=== PATIENT | female | born 1935 | race Caucasian/White ===

== ENCOUNTER → 2019-12-16 | Outpatient (CLI) | payer MEDICARE, OTHER ==
[~2019-12-16] MED LIST: CITA20 PO; DILT120 PO; HYDR1TAB94 PO; LEVSOD100 PO; Lisinopril2.5 MG PO; Ranitidine HCl150 M1 PO; WARF2.5 PO; ZOCOR20 MG PO
[2019-12-16 17:57] LABS: BASOPHILS ABSOLUTE AUTO 0.03 K/mm3 (0.00-0.23); BASOPHILS PERCENT AUTO 1 % (0-2); EOSINOPHILS ABSOLUTE AUTO 0.07 K/mm3 (0.00-0.68); EOSINOPHILS PERCENT AUTO 1 % (0-6); Hematocrit 24.2 % (33.0-51.0); IMMATURE GRAN ABSOLUTE AUTO 0.01 K/mm3 (0.00-0.10); IMMATURE GRAN PERCENT AUTO 0 % (0-1); LYMPHOCYTES ABSOLUTE AUTO 1.14 K/mm3 (0.84-5.20); LYMPHOCYTES PERCENT AUTO 23 % (21-46); MONOCYTES ABSOLUTE AUTO 0.42 K/mm3 (0.16-1.47); MONOCYTES PERCENT AUTO 9 % (4-13); Mean Corpuscular HGB 18.4 pg (26.0-34.0); Mean Corpuscular HGB Conc 24.8 g/dL (31.5-36.5); Mean Corpuscular Volume 74 fL (80-100); Mean Platelet Volume 9.6 fL (9.1-12.4); NEUTROPHILS ABSOLUTE AUTO 3.24 K/mm3 (1.96-9.15); NEUTROPHILS PERCENT AUTO 66 % (41-73); Platelet Count 422 K/mm3 (150-400); RDW Coefficient Variation 18.6 % (11.7-14.2); RDW Standard Deviation 49.7 fL (35.1-46.3); Red Blood Cell Count 3.26 M/mm3 (3.80-5.20); White Blood Cell Count 4.91 K/mm3 (4.00-11.30)
[2019-12-16 18:11] LABS: International Normalized Ratio 1.61; Prothrombin Time Results 16.8 Sec (9.7-11.5)
[2019-12-16 18:41] LABS: Alanine Aminotransfer (ALT/SGP 15 U/L (12-78); Albumin, Blood 3.5 g/dL (3.4-5.0); Alk Phos 53 U/L (50-136); Anion Gap 6 mmol/L (6-16); Aspartate Aminotrans (AST/SGOT 13 U/L (12-37); Bilirubin, Total 0.6 mg/dL (0.1-1.0); Blood Urea Nitrogen 12 mg/dL (8-24); Bun/Creatinine Ratio 13.2 (12.0-20.0); CHOL/HDL RATIO 1.5; CO2, Blood 26 mmol/L (21-32); Calcium, Blood 8.7 mg/dL (8.5-10.1); Chloride, Blood 106 mmol/L (98-108); Cholesterol 110 mg/dL (50-200); Creatinine, Blood 0.91 mg/dL (0.40-1.00); Free Thyroxine 1.08 ng/dL (0.70-1.60); Globulin, Blood 3.5 g/dL (2.2-4.0); Glomerular Filtration Rate >60 (60-); Glucose, Blood 127 mg/dL (70-99); HDL Cholesterol 71 mg/dL (>39); LDL/HDL RATIO 0.4; Low Density Lipoprotein Chol 30 mg/dL (0-110); Potassium, Blood 4.4 mmol/L (3.5-5.5); Sodium, Blood 138 mmol/L (136-145); Triglycerides 46 mg/dL (30-160); Very Low Density Lipoprot Chol 9 mg/dL (6-32)
== END | disposition home or self-care (01) ==
LOC: LAB SHORT 16:53 → LAB 16:53
PROVIDERS: Nurse Practitioner Family
DX: E78.5 Hyperlipidemia, unspecified (principal); E03.9 Hypothyroidism, unspecified; I48.91 Unspecified atrial fibrillation; K81.1 Chronic cholecystitis
CPT/HCPCS: 80053; 80061; 83690; 84439; 84443; 85025; 85610

== ENCOUNTER 2019-12-17 09:38 | Emergency (ER) | payer MEDICARE, OTHER ==
[~2019-12-17] VITALS: Ht 170.2 cm; Wt 99.8 kg
[2019-12-17 10:44] LABS: BASOPHILS ABSOLUTE AUTO 0.03 K/mm3 (0.00-0.23); BASOPHILS PERCENT AUTO 1 % (0-2); EOSINOPHILS ABSOLUTE AUTO 0.07 K/mm3 (0.00-0.68); EOSINOPHILS PERCENT AUTO 2 % (0-6); Hematocrit 23.2 % (33.0-51.0); IMMATURE GRAN ABSOLUTE AUTO 0.01 K/mm3 (0.00-0.10); IMMATURE GRAN PERCENT AUTO 0 % (0-1); LYMPHOCYTES ABSOLUTE AUTO 0.97 K/mm3 (0.84-5.20); LYMPHOCYTES PERCENT AUTO 22 % (21-46); MONOCYTES ABSOLUTE AUTO 0.43 K/mm3 (0.16-1.47); MONOCYTES PERCENT AUTO 10 % (4-13); Mean Corpuscular HGB 18.7 pg (26.0-34.0); Mean Corpuscular HGB Conc 25.4 g/dL (31.5-36.5); Mean Corpuscular Volume 73 fL (80-100); Mean Platelet Volume 9.2 fL (9.1-12.4); NEUTROPHILS ABSOLUTE AUTO 2.99 K/mm3 (1.96-9.15); NEUTROPHILS PERCENT AUTO 66 % (41-73); Platelet Count 368 K/mm3 (150-400); RDW Coefficient Variation 18.3 % (11.7-14.2); RDW Standard Deviation 48.6 fL (35.1-46.3); Red Blood Cell Count 3.16 M/mm3 (3.80-5.20)
[2019-12-17 10:48] LABS: Hemoglobin 5.9 g/dL (11.5-16.0)
[2019-12-17 11:00] LABS: International Normalized Ratio 1.91; Prothrombin Time Results 19.7 Sec (9.7-11.5)
[2019-12-17] MEDS ORDERED: CITA20 PO (11:00)
[2019-12-17] MEDS ORDERED: LEVSOD100 PO (11:01)
[2019-12-17] MEDS ORDERED: DILT120 PO (11:01)
[2019-12-17] MEDS ORDERED: ZOCOR20 MG PO (11:01)
[2019-12-17] MEDS ORDERED: Ranitidine HCl150 M1 PO (11:01)
[2019-12-17] MEDS ORDERED: WARF2.5 PO (11:01)
[2019-12-17] MEDS ORDERED: HYDR1TAB94 PO (11:02)
[2019-12-17] MEDS ORDERED: Lisinopril2.5 MG PO (11:02)
[2019-12-17 11:13] LABS: Alanine Aminotransfer (ALT/SGP 16 U/L (12-78); Albumin, Blood 3.2 g/dL (3.4-5.0); Albumin/Globulin Ratio 0.9 (0.8-1.8); Alk Phos 53 U/L (50-136); Anion Gap 5 mmol/L (6-16); Aspartate Aminotrans (AST/SGOT 10 U/L (12-37); Bilirubin, Total 0.5 mg/dL (0.1-1.0); Blood Urea Nitrogen 12 mg/dL (8-24); Bun/Creatinine Ratio 14.1 (12.0-20.0); CO2, Blood 27 mmol/L (21-32); Calcium, Blood 8.4 mg/dL (8.5-10.1); Chloride, Blood 106 mmol/L (98-108); Creatinine, Blood 0.85 mg/dL (0.40-1.00); Free Thyroxine 1.26 ng/dL (0.70-1.60); Globulin, Blood 3.4 g/dL (2.2-4.0); Glomerular Filtration Rate >60 (60-); Glucose, Blood 107 mg/dL (70-99); Potassium, Blood 4.3 mmol/L (3.5-5.5); Sodium, Blood 138 mmol/L (136-145); Total Protein, Blood 6.6 g/dL (6.4-8.2)
[2019-12-17 12:15] LABS: Percent Saturation 4.6 % (15.0-50.0)
[2019-12-17 12:26] LABS: Source, Urine Clean Catch
[2019-12-17 12:32] LABS: Bilirubin, Urine Neg (Neg); Blood, Urine Neg (Neg); Glucose Qualitative, Urine Neg (Neg); Ketones, Urine Neg (Neg); Leukocyte Esterase, Urine Neg (Neg); Nitrite, Urine Neg (Neg); Protein, Urine Neg (Neg); Urobilinogen, Urine NORM (Normal); pH, Urine 6.5 (5.0-8.0)
[2019-12-17 12:36] LABS: Appearance, Urine Clear (Clear); Color, Urine Yellow (P-Yellow)
== END 2019-12-17 15:29 | disposition home or self-care (01) ==
LOC: ER 09:38
PROVIDERS: Emergency Medicine
DX: D50.9 Iron deficiency anemia, unspecified (principal); R91.8 Other nonspecific abnormal finding of lung field; J39.8 Other specified diseases of upper respiratory tract; Z79.01 Long term (current) use of anticoagulants; Z79.899 Other long term (current) drug therapy
CPT/HCPCS: 36415; 51701; 71046; 71260; 80053; 81003; 83540; 83550; 83690; 83735; 84439; 84443; 85025; 85610; 86850; 86900; 86901; 93005; 93010; 99283-25; Q9967

== ENCOUNTER → 2019-12-21 | Outpatient (CLI) | payer MEDICARE, OTHER ==
[2019-12-21 17:49] LABS: BASOPHILS ABSOLUTE AUTO 0.04 K/mm3 (0.00-0.23); BASOPHILS PERCENT AUTO 1 % (0-2); EOSINOPHILS PERCENT AUTO 2 % (0-6); Hematocrit 26.8 % (33.0-51.0); Hemoglobin 6.4 g/dL (11.5-16.0); IMMATURE GRAN ABSOLUTE AUTO 0.05 K/mm3 (0.00-0.10); IMMATURE GRAN PERCENT AUTO 1 % (0-1); LYMPHOCYTES ABSOLUTE AUTO 1.62 K/mm3 (0.84-5.20); LYMPHOCYTES PERCENT AUTO 26 % (21-46); MONOCYTES ABSOLUTE AUTO 0.48 K/mm3 (0.16-1.47); MONOCYTES PERCENT AUTO 8 % (4-13); Mean Corpuscular HGB 18.6 pg (26.0-34.0); Mean Corpuscular HGB Conc 23.9 g/dL (31.5-36.5); Mean Corpuscular Volume 78 fL (80-100); Mean Platelet Volume 9.3 fL (9.1-12.4); NEUTROPHILS ABSOLUTE AUTO 3.94 K/mm3 (1.96-9.15); NEUTROPHILS PERCENT AUTO 63 % (41-73); NRBC ABSOLUTE 0.05 K/mm3 (0.00-0.02); NRBC Auto 0.8 /100 WBC (0.0-0.2); Platelet Count 394 K/mm3 (150-400); RDW Coefficient Variation 21.2 % (11.7-14.2); RDW Standard Deviation 52.4 fL (35.1-46.3); Red Blood Cell Count 3.45 M/mm3 (3.80-5.20); White Blood Cell Count 6.23 K/mm3 (4.00-11.30)
[2019-12-21 18:05] LABS: Percent Saturation 15.6 % (15.0-50.0)
[2019-12-21 18:24] LABS: Alanine Aminotransfer (ALT/SGP 14 U/L (12-78); Albumin, Blood 3.6 g/dL (3.4-5.0); Albumin/Globulin Ratio 1.1 (0.8-1.8); Alk Phos 57 U/L (50-136); Anion Gap 6 mmol/L (6-16); Aspartate Aminotrans (AST/SGOT 13 U/L (12-37); Bilirubin, Total 0.5 mg/dL (0.1-1.0); Blood Urea Nitrogen 12 mg/dL (8-24); Bun/Creatinine Ratio 14.3 (12.0-20.0); CO2, Blood 29 mmol/L (21-32); Calcium, Blood 8.9 mg/dL (8.5-10.1); Chloride, Blood 106 mmol/L (98-108); Creatinine, Blood 0.84 mg/dL (0.40-1.00); Globulin, Blood 3.2 g/dL (2.2-4.0); Glomerular Filtration Rate >60 (60-); Glucose, Blood 155 mg/dL (70-99); Potassium, Blood 4.7 mmol/L (3.5-5.5); Sodium, Blood 141 mmol/L (136-145); Total Protein, Blood 6.8 g/dL (6.4-8.2)
== END ==
LOC: LAB 16:42 → LAB SHORT 16:42
PROVIDERS: Nurse Practitioner Family
DX: D64.9 Anemia, unspecified (principal); K81.1 Chronic cholecystitis
CPT/HCPCS: 80053; 82728; 83540; 83550; 85025

== ENCOUNTER → 2019-12-28 | Outpatient (CLI) | payer MEDICARE, OTHER ==
[2019-12-28 17:44] LABS: BASOPHILS ABSOLUTE AUTO 0.05 K/mm3 (0.00-0.23); BASOPHILS PERCENT AUTO 1 % (0-2); EOSINOPHILS ABSOLUTE AUTO 0.15 K/mm3 (0.00-0.68); EOSINOPHILS PERCENT AUTO 3 % (0-6); Hematocrit 31.7 % (33.0-51.0); Hemoglobin 7.9 g/dL (11.5-16.0); IMMATURE GRAN ABSOLUTE AUTO 0.02 K/mm3 (0.00-0.10); IMMATURE GRAN PERCENT AUTO 0 % (0-1); LYMPHOCYTES PERCENT AUTO 27 % (21-46); MONOCYTES ABSOLUTE AUTO 0.48 K/mm3 (0.16-1.47); MONOCYTES PERCENT AUTO 9 % (4-13); Mean Corpuscular HGB 20.5 pg (26.0-34.0); Mean Corpuscular HGB Conc 24.9 g/dL (31.5-36.5); Mean Corpuscular Volume 82 fL (80-100); Mean Platelet Volume 9.6 fL (9.1-12.4); NEUTROPHILS ABSOLUTE AUTO 3.37 K/mm3 (1.96-9.15); NEUTROPHILS PERCENT AUTO 61 % (41-73); Platelet Count 313 K/mm3 (150-400); RDW Coefficient Variation 27.3 % (11.7-14.2); RDW Standard Deviation 76.6 fL (35.1-46.3); Red Blood Cell Count 3.86 M/mm3 (3.80-5.20); White Blood Cell Count 5.57 K/mm3 (4.00-11.30)
[2019-12-28 17:58] LABS: International Normalized Ratio 1.74
[2019-12-28 18:00] LABS: Alanine Aminotransfer (ALT/SGP 13 U/L (12-78); Albumin, Blood 3.7 g/dL (3.4-5.0); Alk Phos 63 U/L (50-136); Anion Gap 4 mmol/L (6-16); Aspartate Aminotrans (AST/SGOT 16 U/L (12-37); Bilirubin, Total 0.5 mg/dL (0.1-1.0); Blood Urea Nitrogen 13 mg/dL (8-24); Bun/Creatinine Ratio 14.7 (12.0-20.0); CO2, Blood 29 mmol/L (21-32); Calcium, Blood 8.9 mg/dL (8.5-10.1); Chloride, Blood 109 mmol/L (98-108); Creatinine, Blood 0.89 mg/dL (0.40-1.00); Globulin, Blood 3.7 g/dL (2.2-4.0); Glomerular Filtration Rate >60 (60-); Glucose, Blood 120 mg/dL (70-99); Potassium, Blood 4.4 mmol/L (3.5-5.5); Sodium, Blood 142 mmol/L (136-145); Total Protein, Blood 7.4 g/dL (6.4-8.2)
[2019-12-28 18:10] LABS: Percent Saturation 9.8 % (15.0-50.0)
== END ==
LOC: LAB 16:33 → LAB SHORT 16:33
PROVIDERS: Nurse Practitioner Family
DX: I48.91 Unspecified atrial fibrillation (principal); D64.9 Anemia, unspecified
CPT/HCPCS: 80053; 82728; 83540; 83550; 85025; 85610

== ENCOUNTER → 2020-01-19 | Outpatient (CLI) | payer MEDICARE, OTHER ==
[2020-01-19 17:57] LABS: BASOPHILS PERCENT AUTO 1 % (0-2); EOSINOPHILS ABSOLUTE AUTO 0.07 K/mm3 (0.00-0.68); EOSINOPHILS PERCENT AUTO 1 % (0-6); Hemoglobin 11.2 g/dL (11.5-16.0); IMMATURE GRAN ABSOLUTE AUTO 0.01 K/mm3 (0.00-0.10); IMMATURE GRAN PERCENT AUTO 0 % (0-1); LYMPHOCYTES PERCENT AUTO 27 % (21-46); MONOCYTES PERCENT AUTO 7 % (4-13); Mean Platelet Volume 9.9 fL (9.1-12.4); NEUTROPHILS PERCENT AUTO 64 % (41-73); Platelet Count 258 K/mm3 (150-400); White Blood Cell Count 5.27 K/mm3 (4.00-11.30)
[2020-01-19 17:59] LABS: Hematocrit 41.2 % (33.0-51.0); Mean Corpuscular HGB 25.3 pg (26.0-34.0); Mean Corpuscular HGB Conc 27.2 g/dL (31.5-36.5); Mean Corpuscular Volume 93 fL (80-100); Red Blood Cell Count 4.42 M/mm3 (3.80-5.20)
[2020-01-19 18:20] LABS: BASOPHILS ABSOLUTE AUTO 0.05 K/mm3 (0.00-0.23); LYMPHOCYTES ABSOLUTE AUTO 1.33 K/mm3 (0.84-5.20); MONOCYTES ABSOLUTE AUTO 0.36 K/mm3 (0.16-1.47); NEUTROPHILS ABSOLUTE AUTO 3.17 K/mm3 (1.96-9.15)
[2020-01-19 20:13] LABS: Percent Saturation 26.3 % (15.0-50.0)
== END | disposition home or self-care (01) ==
LOC: LAB SHORT 16:49 → LAB 16:49
PROVIDERS: Nurse Practitioner Family
DX: D64.9 Anemia, unspecified (principal)
CPT/HCPCS: 82728; 83540; 83550; 85025

== ENCOUNTER 2020-08-13 17:56 | Emergency (ER) | payer MEDICARE, OTHER ==
[~2020-08-13] VITALS: Ht 170.2 cm; Wt 97.1 kg
[2020-08-13 19:01] LABS: BASOPHILS ABSOLUTE AUTO 0.02 K/mm3 (0.00-0.23); BASOPHILS PERCENT AUTO 0 % (0-2); EOSINOPHILS ABSOLUTE AUTO 0.05 K/mm3 (0.00-0.68); EOSINOPHILS PERCENT AUTO 1 % (0-6); Hematocrit 46.9 % (33.0-51.0); Hemoglobin 14.9 g/dL (11.5-16.0); IMMATURE GRAN ABSOLUTE AUTO 0.03 K/mm3 (0.00-0.10); IMMATURE GRAN PERCENT AUTO 0 % (0-1); LYMPHOCYTES ABSOLUTE AUTO 1.57 K/mm3 (0.84-5.20); LYMPHOCYTES PERCENT AUTO 18 % (21-46); MONOCYTES ABSOLUTE AUTO 0.82 K/mm3 (0.16-1.47); MONOCYTES PERCENT AUTO 9 % (4-13); Mean Corpuscular HGB 31.4 pg (26.0-34.0); Mean Corpuscular HGB Conc 31.8 g/dL (31.5-36.5); Mean Corpuscular Volume 99 fL (80-100); Mean Platelet Volume 9.6 fL (9.1-12.4); NEUTROPHILS ABSOLUTE AUTO 6.45 K/mm3 (1.96-9.15); NEUTROPHILS PERCENT AUTO 72 % (41-73); Platelet Count 206 K/mm3 (150-400); RDW Coefficient Variation 12.3 % (11.7-14.2); RDW Standard Deviation 44.7 fL (35.1-46.3); Red Blood Cell Count 4.75 M/mm3 (3.80-5.20); White Blood Cell Count 8.94 K/mm3 (4.00-11.30)
[2020-08-13 19:30] LABS: Albumin, Blood 3.6 g/dL (3.4-5.0); Albumin/Globulin Ratio 0.8 (0.8-1.8); Bilirubin, Total 1.4 mg/dL (0.1-1.0); Bun/Creatinine Ratio 14.7 (12.0-20.0); Calcium, Blood 9.6 mg/dL (8.5-10.1); Creatinine, Blood 0.95 mg/dL (0.40-1.00); Globulin, Blood 4.3 g/dL (2.2-4.0); Potassium, Blood 4.1 mmol/L (3.5-5.5); Total Protein, Blood 7.9 g/dL (6.4-8.2)
[2020-08-13 21:57] LABS: SARS-Cov-2 (COVID-19) PCR, MMC NEGATIVE (NEGATIVE)
[2020-08-13 22:02] LABS: Source, Urine Catheter
[2020-08-13 22:04] LABS: Bilirubin, Urine Neg (Neg); Blood, Urine 3+ (Neg); Glucose Qualitative, Urine Neg (Neg); Ketones, Urine 1+ (Neg); Leukocyte Esterase, Urine Neg (Neg); Nitrite, Urine Neg (Neg); Protein, Urine Neg (Neg); Urobilinogen, Urine NORM (Normal)
[2020-08-13 22:11] LABS: Appearance, Urine Clear (Clear); Color, Urine Yellow (P-Yellow); Squamous Epithelial Cells Few /hpf (Few); White Blood Cells, Urine 0-2 /hpf (0-5)
[2020-08-13 22:12] LABS: Bacteria Few /hpf
== END 2020-08-13 23:17 | disposition home or self-care (01) ==
LOC: ER 17:56
PROVIDERS: Emergency Medicine; Physician Assistant
DX: R50.9 Fever, unspecified (principal); I48.91 Unspecified atrial fibrillation; I10 Essential (primary) hypertension; E03.9 Hypothyroidism, unspecified; Z88.2 Allergy status to sulfonamides; Z88.8 Allergy status to other drugs, medicaments and biological substances; Z79.01 Long term (current) use of anticoagulants; Z79.899 Other long term (current) drug therapy; Z20.822 Contact with and (suspected) exposure to COVID-19
CPT/HCPCS: 36415; 71045; 80053; 81001; 83605; 85025; 99284-25; A9270; U0004

== ENCOUNTER 2021-01-09 14:01 | Inpatient (IN) | payer MEDICARE, OTHER ==
[~2021-01-09] VITALS: Ht 170.2 cm; Wt 96.9 kg
[~2021-01-09 14:01] MED LIST changes: -CITA20 PO; +CITALOPRAM HBR10 MG PO; +LISI20 PO; -Lisinopril2.5 MG PO
[2021-01-09 14:54] LABS: BASOPHILS ABSOLUTE AUTO 0.02 K/mm3 (0.00-0.23); BASOPHILS PERCENT AUTO 0 % (0-2); EOSINOPHILS ABSOLUTE AUTO 0.03 K/mm3 (0.00-0.68); EOSINOPHILS PERCENT AUTO 0 % (0-6); Hematocrit 48.3 % (33.0-51.0); Hemoglobin 15.4 g/dL (11.5-16.0); IMMATURE GRAN ABSOLUTE AUTO 0.03 K/mm3 (0.00-0.10); IMMATURE GRAN PERCENT AUTO 0 % (0-1); LYMPHOCYTES ABSOLUTE AUTO 1.17 K/mm3 (0.84-5.20); LYMPHOCYTES PERCENT AUTO 13 % (21-46); MONOCYTES ABSOLUTE AUTO 0.53 K/mm3 (0.16-1.47); MONOCYTES PERCENT AUTO 6 % (4-13); Mean Corpuscular HGB 30.9 pg (26.0-34.0); Mean Corpuscular HGB Conc 31.9 g/dL (31.5-36.5); Mean Corpuscular Volume 97 fL (80-100); Mean Platelet Volume 9.5 fL (9.1-12.4); NEUTROPHILS ABSOLUTE AUTO 7.31 K/mm3 (1.96-9.15); NEUTROPHILS PERCENT AUTO 81 % (41-73); Platelet Count 271 K/mm3 (150-400); RDW Coefficient Variation 12.7 % (11.7-14.2); RDW Standard Deviation 45.1 fL (35.1-46.3); Red Blood Cell Count 4.99 M/mm3 (3.80-5.20); White Blood Cell Count 9.09 K/mm3 (4.00-11.30)
[2021-01-09 15:22] LABS: Alanine Aminotransfer (ALT/SGP 20 U/L (12-78); Albumin/Globulin Ratio 0.6 (0.8-1.8); Alk Phos 54 U/L (50-136); Anion Gap 6 mmol/L (6-16); Aspartate Aminotrans (AST/SGOT 21 U/L (12-37); Blood Urea Nitrogen 14 mg/dL (8-24); Bun/Creatinine Ratio 16.8 (12.0-20.0); CO2, Blood 29 mmol/L (21-32); Calcium, Blood 9.4 mg/dL (8.5-10.1); Chloride, Blood 103 mmol/L (98-108); Creatinine, Blood 0.83 mg/dL (0.40-1.00); Globulin, Blood 4.7 g/dL (2.2-4.0); Glomerular Filtration Rate >60 (60-); Glucose, Blood 120 mg/dL (70-99); Sodium, Blood 138 mmol/L (136-145); Total Protein, Blood 7.7 g/dL (6.4-8.2)
[2021-01-09] MEDS ORDERED: ELIQUIS2.5 MG PO (16:19)
[2021-01-09] MEDS ORDERED: ACET325 PO (17:40)
[2021-01-09] MEDS ORDERED: BREO ELLIPTA 11 EAC1 INH (17:40)
[2021-01-09 18:11] LABS: Source, Urine Clean Catch
[2021-01-09 18:15] LABS: Appearance, Urine Clear (Clear); Bilirubin, Urine Neg (Neg); Blood, Urine 2+ (Neg); Color, Urine Amber (P-Yellow); Glucose Qualitative, Urine Neg (Neg); Ketones, Urine 1+ (Neg); Leukocyte Esterase, Urine Neg (Neg); Nitrite, Urine Neg (Neg); Protein, Urine 1+ (Neg); Urobilinogen, Urine 1+ (Normal)
[2021-01-09 18:27] LABS: Bacteria Few /hpf; Red Blood Cells, Urine 0-2 /hpf (0-2); Squamous Epithelial Cells Few /hpf (Few); White Blood Cells, Urine Rare /hpf (0-5)
[2021-01-09 20:53] LABS: SARS-Cov-2 (COVID-19) PCR, MMC NEGATIVE (NEGATIVE)
[2021-01-10 04:40] LABS: Anion Gap 5 mmol/L (6-16); Blood Urea Nitrogen 14 mg/dL (8-24); Bun/Creatinine Ratio 16.2 (12.0-20.0); CO2, Blood 29 mmol/L (21-32); Calcium, Blood 8.6 mg/dL (8.5-10.1); Chloride, Blood 106 mmol/L (98-108); Creatinine, Blood 0.86 mg/dL (0.40-1.00); Glomerular Filtration Rate >60 (60-); Glucose, Blood 114 mg/dL (70-99); Potassium, Blood 3.7 mmol/L (3.5-5.5); Sodium, Blood 140 mmol/L (136-145)
--- NOTE | 2021-01-10 06:34 | NUR ---
PT IS A/OX3. ABLE TO MAKE HER NEEDS KNOWN. IS [place]. PLEASANT AND COOPERATIVE WITH STAFF AND HER CARE. IN GOOD SPIRITS. ADMITTED FROM ED FOR DX OF SBO. WITH ASSISTANCE OF 4 STAFF MEMBERS, PT WAS TRANSFERED FROM ED GURNEY TO BED. PT AND HER DTR BOTH ORIENTED TO ROOM, CALL LIGHT, STAFF, SAFETY AND VISITING HOURS. DTR WAS INSISTANT THAT "ONLY SOMEONE WHO IS PROFICIENT IN PUTTING NG TUBES IS ALLOWED TO PUT IN MY MOM'S TUBE. THE LAST TIME MY MOM HAD ONE IT WASN'T DONE RIGHT AND IT WAS VERY, VERY TRAUMATIC FOR HER." REASSURED DTR THAT ALL NURSES ARE ABLE TO DROP AND TAKE CARE OF NGT'S. DTR SEEMED RELIEVED. DTR LEFT AFTER A FEW MOMENTS. AT 22:25, 14 GAUGE NGT PLACED TO RT NARE, SET TO LIS. NGT SECURED TO NOSE W/SKIN PREP THEN NASAL STRIP. TUBING SAFETY PINNED TO PT'S GOWN. WITHIN 5 MIN OF INSERTION, 270ML OF GREEN EFFLUENT IN CANNISTER. BY 0600, TOTAL OF 475ML OF GREEN EFFLUENT WAS IN CANNISTER. PT DID HAVE SOME N/V FOLLOWING INSERTION OF NGT, BUT WAS MOSTLY WATER THAT WAS USED W/SWALLOWING W/NGT INSERTION. ABD DISTENDED, TENDER W/LARGE BULGE TO LT SIDE. PT IS NPO. DOES C/O ABD 'CRAMPS.' PAIN MANAGED W/PRN MEDS PER EMAR. OXYEN AT 2L PER NC.
--- NOTE | 2021-01-10 11:54 | NUR ---
PT. TO SURGERY VIA [facility]. DAUGHTER PATRICA WITH PATIENT TO SPEAK WITH DR. ROBINS PLANNED PRIOR TO SURGERY. IV L WIRST SALINE LOCKED, NG TO R NARE CLAMPLED.
--- NOTE | 2021-01-10 12:31 | NUR ---
THE PATIENT WAS BROUGHT TO DAY SURGERY FOR HER PROCEDURE. Ambulatory in Day Surgery Surgical site prepped with 2% Chlorhexidine cloth wipe. History, Chart, Medications and Allergies reviewed before start of procedure.Lungs clear T/O to Auscultation. Patient confirms NPO status and agrees with scheduled surgery. Pre-Op teaching done. Pt verbalizes understanding. Patient States Post-Procedure ride home has been arranged.
[2021-01-10 17:53] LABS: Hematocrit 50.3 % (33.0-51.0); Hemoglobin 15.7 g/dL (11.5-16.0)
[2021-01-11 04:37] LABS: BASOPHILS ABSOLUTE AUTO 0.01 K/mm3 (0.00-0.23); BASOPHILS PERCENT AUTO 0 % (0-2); EOSINOPHILS PERCENT AUTO 0 % (0-6); Hematocrit 45.7 % (33.0-51.0); Hemoglobin 14.3 g/dL (11.5-16.0); IMMATURE GRAN ABSOLUTE AUTO 0.03 K/mm3 (0.00-0.10); IMMATURE GRAN PERCENT AUTO 0 % (0-1); LYMPHOCYTES ABSOLUTE AUTO 0.93 K/mm3 (0.84-5.20); LYMPHOCYTES PERCENT AUTO 8 % (21-46); MONOCYTES ABSOLUTE AUTO 0.79 K/mm3 (0.16-1.47); MONOCYTES PERCENT AUTO 7 % (4-13); Mean Corpuscular HGB 30.9 pg (26.0-34.0); Mean Corpuscular HGB Conc 31.3 g/dL (31.5-36.5); Mean Corpuscular Volume 99 fL (80-100); Mean Platelet Volume 9.8 fL (9.1-12.4); NEUTROPHILS ABSOLUTE AUTO 9.45 K/mm3 (1.96-9.15); NEUTROPHILS PERCENT AUTO 84 % (41-73); Platelet Count 221 K/mm3 (150-400); RDW Coefficient Variation 12.6 % (11.7-14.2); RDW Standard Deviation 45.4 fL (35.1-46.3); Red Blood Cell Count 4.63 M/mm3 (3.80-5.20); White Blood Cell Count 11.21 K/mm3 (4.00-11.30)
[2021-01-11 05:16] LABS: Anion Gap 6 mmol/L (6-16); Blood Urea Nitrogen 16 mg/dL (8-24); Bun/Creatinine Ratio 19.5 (12.0-20.0); CO2, Blood 30 mmol/L (21-32); Calcium, Blood 8.3 mg/dL (8.5-10.1); Chloride, Blood 105 mmol/L (98-108); Creatinine, Blood 0.82 mg/dL (0.40-1.00); Glomerular Filtration Rate >60 (60-); Glucose, Blood 136 mg/dL (70-99); Potassium, Blood 4.1 mmol/L (3.5-5.5); Sodium, Blood 141 mmol/L (136-145)
--- NOTE | 2021-01-11 06:12 | NUR ---
PT IS A/OX3. ABLE TO MAKE HER NEEDS KNOWN. [place]. PT HAD EXP LAP W/HERNIA REPAIR, DONE YESTERDAY. PT WAS ALREADY ON UNIT AT START OF NOC SHIFT. MIDLINE INCISION W/EDIL DRSG, DRSG IS CDI. RLQ EUGENIO DRAIN, SITE CDI, BLOODY DRNG IN BULB. NGT TO RT NARE AND SET TO LIS. BROWN FROTHY EFFLUENT IN CANNISTER. OXYGEN AT 3L. CBS, BUT DIMINISHED. USES PILLOW TO SPLINT COUGHS. PT WAS EDUCATED/REMINDED TO COUGH, DEEP BREATH AND USE I/S. ABLE TO CORRECTLY RETURN DEMO OF I/S. AT 2240, DR MORALES UPDATED OF: PT'S PMH, CURRENT STATUS- NPO, SURGERY, NGT AND IRREGULAR HR: [id number], AND HOME MEDS (ELIQUIS/DILTIAZEM/LISINOPRIL) NOT RESTARTED YET. RECEIVED ORDER FOR TELE. TELE MONITOR PLACED AT APPROX 2300.
--- NOTE | 2021-01-11 16:32 | NUR ---
SHIFT SUMMARY PATIENT DENIES ANY NAUSEA NO VOMITING ON SHIFT. NGT CLAMPED AT [address] ROBINS. PER MD ORDER RN PLACED SUCTION BACK ON AT 1600 WITH 20CC OUT. NGT REMOVED. PATIENT TOLERATED WELL. ROMERO REMOVED AT 1500, PATIENT DTV.
[2021-01-12 04:52] LABS: BASOPHILS ABSOLUTE AUTO 0.02 K/mm3 (0.00-0.23); BASOPHILS PERCENT AUTO 0 % (0-2); EOSINOPHILS ABSOLUTE AUTO 0.06 K/mm3 (0.00-0.68); EOSINOPHILS PERCENT AUTO 1 % (0-6); Hematocrit 41.4 % (33.0-51.0); Hemoglobin 12.6 g/dL (11.5-16.0); IMMATURE GRAN ABSOLUTE AUTO 0.03 K/mm3 (0.00-0.10); IMMATURE GRAN PERCENT AUTO 0 % (0-1); LYMPHOCYTES ABSOLUTE AUTO 2.08 K/mm3 (0.84-5.20); LYMPHOCYTES PERCENT AUTO 20 % (21-46); MONOCYTES ABSOLUTE AUTO 1.02 K/mm3 (0.16-1.47); MONOCYTES PERCENT AUTO 10 % (4-13); Mean Corpuscular HGB 30.6 pg (26.0-34.0); Mean Corpuscular HGB Conc 30.4 g/dL (31.5-36.5); Mean Corpuscular Volume 101 fL (80-100); Mean Platelet Volume 9.8 fL (9.1-12.4); NEUTROPHILS ABSOLUTE AUTO 7.09 K/mm3 (1.96-9.15); NEUTROPHILS PERCENT AUTO 69 % (41-73); Platelet Count 210 K/mm3 (150-400); RDW Coefficient Variation 12.5 % (11.7-14.2); RDW Standard Deviation 46.7 fL (35.1-46.3); Red Blood Cell Count 4.12 M/mm3 (3.80-5.20)
[2021-01-12 05:21] LABS: Anion Gap 3 mmol/L (6-16); Blood Urea Nitrogen 16 mg/dL (8-24); Bun/Creatinine Ratio 20.7 (12.0-20.0); CO2, Blood 32 mmol/L (21-32); Calcium, Blood 8.4 mg/dL (8.5-10.1); Chloride, Blood 104 mmol/L (98-108); Creatinine, Blood 0.77 mg/dL (0.40-1.00); Glomerular Filtration Rate >60 (60-); Glucose, Blood 89 mg/dL (70-99); Potassium, Blood 3.8 mmol/L (3.5-5.5); Sodium, Blood 139 mmol/L (136-145)
--- NOTE | 2021-01-12 05:47 | NUR ---
PT IS A/OX3. [place]. ABLE TO MAKE HER NEEDS KNOWN. NO EVENTS OVER NIGHT. IS POD #2 FOR EXP LAP W/HERNIA REPAIR. MIDLINE INCISION W/EDIL. EDIL WORKING WELL, COMPRESSED. RLQ EUGENIO DRAIN PATENT, COMPRESSED, W/BLOODY DRNG. BT'S POS X4. PASSING GAS. NO N/V. OXYGEN AT 3L PER NC. I/S AT BEDSIDE. TELE. HEATHER WAS D/C'D YESTERDAY. VOIDING WELL, USING BED NGO & WEARING ADULT DISPOSABLE BRIEFS.
--- NOTE | 2021-01-12 17:18 | NUR ---
PT REPORTS PAIN IS CONTROLLED WITH PO MEDS. PT UP TO COMMODE WITH MODERATE ASSIST. NORTH CLEAR LIQUIDS WITHOUT NAUSEA. EDIL IN PLACE TO ABD MAINTAINING SUCTION. EUGENIO WITH BLOODY OUTPU
--- NOTE | 2021-01-13 07:28 | NUR ---
SUMMARY PT SLEPT OFF AND ON. HAD SUBLIMAZE THIS AM, BUT VERB NORCO WORKS BETTER.VERB THROAT LOZENGES EFFECTIVE.UP TO BSC THIS AM.
[2021-01-13 09:10] LABS: BASOPHILS ABSOLUTE AUTO 0.02 K/mm3 (0.00-0.23); BASOPHILS PERCENT AUTO 0 % (0-2); EOSINOPHILS ABSOLUTE AUTO 0.11 K/mm3 (0.00-0.68); EOSINOPHILS PERCENT AUTO 2 % (0-6); Hematocrit 47.2 % (33.0-51.0); Hemoglobin 14.3 g/dL (11.5-16.0); IMMATURE GRAN ABSOLUTE AUTO 0.02 K/mm3 (0.00-0.10); IMMATURE GRAN PERCENT AUTO 0 % (0-1); LYMPHOCYTES ABSOLUTE AUTO 1.45 K/mm3 (0.84-5.20); LYMPHOCYTES PERCENT AUTO 21 % (21-46); MONOCYTES ABSOLUTE AUTO 0.64 K/mm3 (0.16-1.47); MONOCYTES PERCENT AUTO 9 % (4-13); Mean Corpuscular HGB 30.4 pg (26.0-34.0); Mean Corpuscular HGB Conc 30.3 g/dL (31.5-36.5); Mean Corpuscular Volume 100 fL (80-100); Mean Platelet Volume 9.9 fL (9.1-12.4); NEUTROPHILS ABSOLUTE AUTO 4.67 K/mm3 (1.96-9.15); NEUTROPHILS PERCENT AUTO 68 % (41-73); Platelet Count 239 K/mm3 (150-400); RDW Coefficient Variation 12.3 % (11.7-14.2); RDW Standard Deviation 46.5 fL (35.1-46.3); White Blood Cell Count 6.91 K/mm3 (4.00-11.30)
[2021-01-13 09:30] LABS: Anion Gap 3 mmol/L (6-16); Blood Urea Nitrogen 11 mg/dL (8-24); Bun/Creatinine Ratio 15.6 (12.0-20.0); CO2, Blood 35 mmol/L (21-32); Calcium, Blood 8.8 mg/dL (8.5-10.1); Chloride, Blood 102 mmol/L (98-108); Glomerular Filtration Rate >60 (60-); Glucose, Blood 128 mg/dL (70-99); Potassium, Blood 3.9 mmol/L (3.5-5.5); Sodium, Blood 140 mmol/L (136-145)
--- NOTE | 2021-01-13 16:54 | NUR ---
PT REPORTS PAIN IS CONTROLLED WITH PO MEDS. PT REPORTS BREATHING FEELS BETTER TO HER THIS AFTERNOON, REPORTS SORE THROAT AND FEELING MUCOUS IN HER THROAT-USING CEPACOL LOZENGES. LUNG DIMINISHED IN BASES. PRUNE JUICE GIVEN PER REQUEST. PLAN FOR DISCHARGE TO SNF
--- NOTE | 2021-01-14 18:28 | NUR ---
SHIFT SUMMARY PATIENT ALERT AND ORIENTED THROUGHOUT SHIFT. SBA TO COMMODE AND CHAIR. TOLERATING REGULAR DIET AND FLUIDS. PASSING GAS, SMALL BOWEL MOVEMENT THIS SHIFT. EDIL DRESSING CHANGED TO MEDIPORE THIS SHIFT. MEDICATED FOR PAIN NEEDED. ECHO COMPLETED THIS SHIFT. WILL REPORT TO MEDICAL OFFICE SUPERVISOR RN.
[2021-01-15 06:25] LABS: Albumin, Blood 2.4 g/dL (3.4-5.0); Anion Gap 5 mmol/L (6-16); Blood Urea Nitrogen 11 mg/dL (8-24); Bun/Creatinine Ratio 15.5 (12.0-20.0); CO2, Blood 35 mmol/L (21-32); Calcium, Blood 8.9 mg/dL (8.5-10.1); Chloride, Blood 101 mmol/L (98-108); Creatinine, Blood 0.71 mg/dL (0.40-1.00); Glomerular Filtration Rate >60 (60-); Glucose, Blood 106 mg/dL (70-99); Phosphorus, Blood 2.2 mg/dL (2.5-4.9); Potassium, Blood 4.1 mmol/L (3.5-5.5); Sodium, Blood 141 mmol/L (136-145)
--- NOTE | 2021-01-15 17:52 | NUR ---
PATIENT CURRENTLY SITTING UP IN CHAIR WITH NO SIGNS OR SYMPTOMS ACUTE DISTRESS NOTED. PATIENT ABLE TO MAKE WANTS AND NEEDS KNOWN. USES CALL LIGHT APPROPRIATELY. UP WITH SBA ONLY, PATIENT USES WALKER TO TRANSFER. DR ROBINS ADVANCED PATIENTS DIET TO REGULAR FOR TONIGHT MEAL. TOLERATING WELL. DR ROBINS REMOVED EUGENIO DRAIN TO RLQ, TOLERATED WELL. HE ALSO CHANGED THE DRESSING TO MIDLINE ABD INCISION. CALL LIGHT AND WATER IN EASY REACH. WILL MONITOR.
[2021-01-16 14:15] LABS: Influenza A, PCR NEGATIVE (NEGATIVE); Influenza B, PCR NEGATIVE (NEGATIVE); Resp Syncytial Virus, PCR NEGATIVE (NEGATIVE); SARS-Cov-2 (COVID-19) PCR, MMC NEGATIVE (NEGATIVE)
--- NOTE | 2021-01-16 15:10 | NUR ---
REPORT CALLED TO PETER SCHULZ AT [facility] AT THIS TIME.
== END 2021-01-16 17:24 | DRG 353 ==
LOC: ER 14:01 → SURS 18:50
PROVIDERS: Emergency Medicine; Family Medicine; Internal Medicine; Surgery; ADMIT Internal Medicine
PROC: 0WUF0JZ Supplement Abdominal Wall with Synthetic Substitute, Open Approach (ICD-10-PCS; principal; 2021-01-10 12:30)
PROC: 0WPF0JZ Removal of Synthetic Substitute from Abdominal Wall, Open Approach (ICD-10-PCS; 2021-01-10 12:30)
DX: K43.0 Incisional hernia with obstruction, without gangrene (principal); I50.33 Acute on chronic diastolic (congestive) heart failure; I48.20 Chronic atrial fibrillation, unspecified; E89.0 Postprocedural hypothyroidism; J44.9 Chronic obstructive pulmonary disease, unspecified; E83.39 Other disorders of phosphorus metabolism; Z20.822 Contact with and (suspected) exposure to COVID-19; I27.20 Pulmonary hypertension, unspecified; Z53.1 Procedure and treatment not carried out because of patient's decision for reasons of belief and group pressure; I11.0 Hypertensive heart disease with heart failure; Z88.2 Allergy status to sulfonamides; Z88.8 Allergy status to other drugs, medicaments and biological substances; Z98.890 Other specified postprocedural states; Z90.5 Acquired absence of kidney; Z79.01 Long term (current) use of anticoagulants; Z79.899 Other long term (current) drug therapy; Z79.51 Long term (current) use of inhaled steroids; Z90.49 Acquired absence of other specified parts of digestive tract
CPT/HCPCS: 0241U; 36415; 71045; 71046; 74177; 80048; 80053; 80069; 81001; 82947; 83690; 83880; 84484; 85014; 85018; 85025; 88304; 93005; 93010; 93306; 96374; 96375; 97110; 97162; 97530; 99285-25; A9270; C1781; J0360; J0690; J1100; J1650; J1940; J2405; J2704; J3010; J7030; J7120; Q9967; U0004

== ENCOUNTER → 2021-02-23 | Outpatient (CLI) | payer MEDICARE, OTHER ==
[~2021-02-23] MED LIST changes: +ACET325 PO; +BREO ELLIPTA 11 EAC1 INH; +ELIQUIS2.5 MG PO
[2021-02-23 18:25] LABS: Albumin, Blood 3.6 g/dL (3.4-5.0); Albumin/Globulin Ratio 0.8 (0.8-1.8); Bilirubin, Total 0.9 mg/dL (0.1-1.0); Bun/Creatinine Ratio 18.4 (12.0-20.0); Calcium, Blood 9.4 mg/dL (8.5-10.1); Creatinine, Blood 1.14 mg/dL (0.40-1.00); Globulin, Blood 4.4 g/dL (2.2-4.0); Percent Saturation 42.3 % (15.0-50.0); Potassium, Blood 4.3 mmol/L (3.5-5.5)
== END | disposition home or self-care (01) ==
LOC: LAB SHORT 16:26
PROVIDERS: Nurse Practitioner Family
DX: D64.9 Anemia, unspecified (principal); R60.0 Localized edema
CPT/HCPCS: 80053; 82728; 83540; 83550

== ENCOUNTER → 2021-04-05 | Outpatient (CLI) | payer MEDICARE, OTHER | END | disposition home or self-care (01) | LOC: LAB 11:45 → LAB SHORT 11:45 | PROVIDERS: Registered Nurse Oncology | DX: E55.9 Vitamin D deficiency, unspecified (principal); D50.9 Iron deficiency anemia, unspecified | CPT/HCPCS: 82728; 83540; 83550 ==

== ENCOUNTER → 2021-07-13 | Outpatient (CLI) | payer MEDICARE, OTHER ==
[2021-07-13 17:37] LABS: BASOPHILS ABSOLUTE AUTO 0.03 K/mm3 (0.00-0.23); BASOPHILS PERCENT AUTO 1 % (0-2); EOSINOPHILS PERCENT AUTO 4 % (0-6); Hematocrit 46.5 % (33.0-51.0); Hemoglobin 14.2 g/dL (11.5-16.0); IMMATURE GRAN ABSOLUTE AUTO 0.01 K/mm3 (0.00-0.10); IMMATURE GRAN PERCENT AUTO 0 % (0-1); LYMPHOCYTES ABSOLUTE AUTO 1.61 K/mm3 (0.84-5.20); LYMPHOCYTES PERCENT AUTO 34 % (21-46); MONOCYTES ABSOLUTE AUTO 0.41 K/mm3 (0.16-1.47); MONOCYTES PERCENT AUTO 9 % (4-13); Mean Corpuscular HGB 30.2 pg (26.0-34.0); Mean Corpuscular HGB Conc 30.5 g/dL (31.5-36.5); Mean Corpuscular Volume 99 fL (80-100); Mean Platelet Volume 10.2 fL (9.1-12.4); NEUTROPHILS ABSOLUTE AUTO 2.55 K/mm3 (1.96-9.15); NEUTROPHILS PERCENT AUTO 53 % (41-73); Platelet Count 222 K/mm3 (150-400); RDW Coefficient Variation 12.9 % (11.7-14.2); RDW Standard Deviation 47.5 fL (35.1-46.3); White Blood Cell Count 4.81 K/mm3 (4.00-11.30)
[2021-07-13 18:26] LABS: Albumin, Blood 3.7 g/dL (3.4-5.0); Bilirubin, Total 0.9 mg/dL (0.1-1.0); Bun/Creatinine Ratio 15.3 (12.0-20.0); Calcium, Blood 9.5 mg/dL (8.5-10.1); Creatinine, Blood 0.85 mg/dL (0.40-1.00); Globulin, Blood 3.7 g/dL (2.2-4.0); Potassium, Blood 4.2 mmol/L (3.5-5.5); Thyroid Stimulating Hormone 2.74 uIU/mL (0.360-4.800); Total Protein, Blood 7.4 g/dL (6.4-8.2)
== END | disposition home or self-care (01) ==
LOC: LAB SHORT 16:37 → LAB 16:37
PROVIDERS: Nurse Practitioner Family
DX: E03.9 Hypothyroidism, unspecified (principal); R60.0 Localized edema; R89.9 Unspecified abnormal finding in specimens from other organs, systems and tissues
CPT/HCPCS: 80053; 83880; 84443; 85025

== ENCOUNTER → 2021-09-14 | Outpatient (CLI) | payer MEDICARE, OTHER | END | disposition home or self-care (01) | LOC: LAB SHORT 16:00 → LAB 16:00 | DX: R50.9 Fever, unspecified (principal) | CPT/HCPCS: 87086 ==

== ENCOUNTER → 2021-09-19 | Outpatient (CLI) | payer MEDICARE, OTHER ==
[2021-09-19 16:05] LABS: BASOPHILS ABSOLUTE AUTO 0.04 K/mm3 (0.00-0.23); BASOPHILS PERCENT AUTO 0 % (0-2); EOSINOPHILS ABSOLUTE AUTO 0.03 K/mm3 (0.00-0.68); EOSINOPHILS PERCENT AUTO 0 % (0-6); Hematocrit 46.4 % (33.0-51.0); Hemoglobin 14.4 g/dL (11.5-16.0); IMMATURE GRAN ABSOLUTE AUTO 0.07 K/mm3 (0.00-0.10); IMMATURE GRAN PERCENT AUTO 1 % (0-1); LYMPHOCYTES ABSOLUTE AUTO 1.33 K/mm3 (0.84-5.20); LYMPHOCYTES PERCENT AUTO 12 % (21-46); MONOCYTES ABSOLUTE AUTO 0.78 K/mm3 (0.16-1.47); MONOCYTES PERCENT AUTO 7 % (4-13); Mean Corpuscular HGB 30.1 pg (26.0-34.0); Mean Corpuscular Volume 97 fL (80-100); Mean Platelet Volume 9.7 fL (9.1-12.4); NEUTROPHILS ABSOLUTE AUTO 8.47 K/mm3 (1.96-9.15); NEUTROPHILS PERCENT AUTO 79 % (41-73); Platelet Count 279 K/mm3 (150-400); RDW Coefficient Variation 13.5 % (11.7-14.2); Red Blood Cell Count 4.79 M/mm3 (3.80-5.20); White Blood Cell Count 10.72 K/mm3 (4.00-11.30)
[2021-09-19 18:36] LABS: Albumin, Blood 3.5 g/dL (3.4-5.0); Albumin/Globulin Ratio 0.8 (0.8-1.8); Bun/Creatinine Ratio 16.5 (12.0-20.0); Calcium, Blood 9.7 mg/dL (8.5-10.1); Creatinine, Blood 0.91 mg/dL (0.40-1.00); Globulin, Blood 4.2 g/dL (2.2-4.0); Potassium, Blood 4.3 mmol/L (3.5-5.5); Total Protein, Blood 7.7 g/dL (6.4-8.2)
== END | disposition home or self-care (01) ==
LOC: LAB SHORT 14:02 → LAB 14:02
PROVIDERS: Nurse Practitioner
DX: R50.9 Fever, unspecified (principal)
CPT/HCPCS: 36415; 80053; 85025; 87086

== ENCOUNTER → 2021-10-02 | Outpatient (CLI) | payer MEDICARE, OTHER ==
[2021-10-02 18:58] LABS: Albumin, Blood 3.6 g/dL (3.4-5.0); Albumin/Globulin Ratio 0.9 (0.8-1.8); Bilirubin, Total 0.6 mg/dL (0.1-1.0); Bun/Creatinine Ratio 17.4 (12.0-20.0); Calcium, Blood 9.5 mg/dL (8.5-10.1); Creatinine, Blood 0.92 mg/dL (0.40-1.00); Globulin, Blood 4.1 g/dL (2.2-4.0); Potassium, Blood 4.2 mmol/L (3.5-5.5); Total Protein, Blood 7.7 g/dL (6.4-8.2)
== END ==
LOC: LAB SHORT 12:00 → LAB 12:00
PROVIDERS: Nurse Practitioner Family
DX: I50.9 Heart failure, unspecified (principal)
CPT/HCPCS: 80053; 83880

== ENCOUNTER 2021-12-08 10:43 | Inpatient (IN) | payer MEDICARE, OTHER ==
[~2021-12-08] VITALS: Ht 170.2 cm; Wt 94.9 kg
[2021-12-08 11:46] LABS: BASOPHILS ABSOLUTE AUTO 0.02 K/mm3 (0.00-0.23); BASOPHILS PERCENT AUTO 0 % (0-2); EOSINOPHILS ABSOLUTE AUTO 0.07 K/mm3 (0.00-0.68); EOSINOPHILS PERCENT AUTO 2 % (0-6); Hematocrit 45.6 % (33.0-51.0); Hemoglobin 14.6 g/dL (11.5-16.0); IMMATURE GRAN ABSOLUTE AUTO 0.01 K/mm3 (0.00-0.10); IMMATURE GRAN PERCENT AUTO 0 % (0-1); LYMPHOCYTES ABSOLUTE AUTO 1.97 K/mm3 (0.84-5.20); LYMPHOCYTES PERCENT AUTO 44 % (21-46); MONOCYTES PERCENT AUTO 9 % (4-13); Mean Corpuscular HGB 31.5 pg (26.0-34.0); Mean Corpuscular Volume 98 fL (80-100); Mean Platelet Volume 10.1 fL (9.1-12.4); NEUTROPHILS ABSOLUTE AUTO 2.03 K/mm3 (1.96-9.15); NEUTROPHILS PERCENT AUTO 45 % (41-73); Platelet Count 218 K/mm3 (150-400); RDW Coefficient Variation 13.4 % (11.7-14.2); RDW Standard Deviation 49.1 fL (35.1-46.3); Red Blood Cell Count 4.64 M/mm3 (3.80-5.20)
[2021-12-08 12:02] LABS: Albumin, Blood 3.7 g/dL (3.4-5.0); Albumin/Globulin Ratio 0.9 (0.8-1.8); Bilirubin, Total 0.9 mg/dL (0.1-1.0); Bun/Creatinine Ratio 15.3 (12.0-20.0); Calcium, Blood 9.8 mg/dL (8.5-10.1); Creatinine, Blood 0.98 mg/dL (0.40-1.00); Globulin, Blood 3.9 g/dL (2.2-4.0); Potassium, Blood 4.3 mmol/L (3.5-5.5); Total Protein, Blood 7.6 g/dL (6.4-8.2)
--- NOTE | 2021-12-08 19:20 | NUR ---
ADMIT NOTE PATIENT NEW ADMIT FROM ER FOR CHOLECYSTITIS. ALERT AND ORIENTED BUT [place]. SBA WITH FWW TO BSC. TOELRATING FULL LIQUID DIET. DENIES NAUSEA AND ABD PAIN AT THIS TIME. TAKES ELIQUIS SO PLAN FOR CHOLECYSTECTOMY AFTER 72 HOURS FROM LAST DOSE IN AM OF 12/07/21. DAUGHTER PRESENT ON ADMIT. REPORT GIVEN TO AIR ROUTE TRAFFIC CONTROLLER RN.
[2021-12-09 04:35] LABS: Hematocrit 45.1 % (33.0-51.0); Hemoglobin 14.4 g/dL (11.5-16.0); Mean Corpuscular HGB Conc 31.9 g/dL (31.5-36.5); Mean Corpuscular Volume 97 fL (80-100); Mean Platelet Volume 10.2 fL (9.1-12.4); Platelet Count 204 K/mm3 (150-400); RDW Coefficient Variation 13.4 % (11.7-14.2); RDW Standard Deviation 48.1 fL (35.1-46.3); Red Blood Cell Count 4.64 M/mm3 (3.80-5.20); White Blood Cell Count 4.88 K/mm3 (4.00-11.30)
--- NOTE | 2021-12-09 04:54 | NUR ---
SHIFT SUMMARY NO ACUTE CHANGES OVERNIGHT. PT SLEPT GOOD T/O SHIFT. UP IN BSC WITH SBA MULTIPLE TIMES. VOIDING ADEQUATELY. PT WEARS CPAP AT NIGHT. SATS WNL. ROOM AIR WHEN AWAKE. AOX3. CALLS APPROPRIATELY. PT DENIES ABD PAIN. PT HAS BEEN COMFORTABLE. CLEAR LIQ DIET. TOLERATES IT WELL, DENIES NAUSEA AND VOMITING. VSS. CALL LIGHT WITHIN REACH. WILL PROVIDE REPORT TO ONCOMING NURSE.
[2021-12-09 04:58] LABS: Bun/Creatinine Ratio 14.3 (12.0-20.0); Calcium, Blood 9.3 mg/dL (8.5-10.1); Creatinine, Blood 1.05 mg/dL (0.40-1.00); Potassium, Blood 3.8 mmol/L (3.5-5.5)
--- NOTE | 2021-12-09 09:55 | NUR ---
DR GAITAN IN TO SEE PT.
--- NOTE | 2021-12-09 17:03 | NUR ---
SUMMARY PT TOLERATING CLEAR LIQUID DIET. GETTING UP INDEPENDENTLY TO BSC. PT REPORTED HAD BM THIS EVENING. PT STATES FEELS "ACHY" ALL OVER. RECEIVED TYLENOL EARLIER PER ORDERS FOR FOOT PAIN. OFFERED ICE PACK FOR NASH, PT DECLINED. IV ABX ADMINISTERED PER ORDERS. PT TALKING ON PHONE AT THIS TIME. CALL LIGHT IN REACH.
[2021-12-10 04:55] LABS: BASOPHILS ABSOLUTE AUTO 0.03 K/mm3 (0.00-0.23); BASOPHILS PERCENT AUTO 1 % (0-2); EOSINOPHILS ABSOLUTE AUTO 0.13 K/mm3 (0.00-0.68); EOSINOPHILS PERCENT AUTO 3 % (0-6); Hematocrit 42.2 % (33.0-51.0); Hemoglobin 14.1 g/dL (11.5-16.0); IMMATURE GRAN ABSOLUTE AUTO 0.01 K/mm3 (0.00-0.10); IMMATURE GRAN PERCENT AUTO 0 % (0-1); LYMPHOCYTES ABSOLUTE AUTO 2.14 K/mm3 (0.84-5.20); LYMPHOCYTES PERCENT AUTO 47 % (21-46); MONOCYTES ABSOLUTE AUTO 0.48 K/mm3 (0.16-1.47); MONOCYTES PERCENT AUTO 11 % (4-13); Mean Corpuscular HGB 31.8 pg (26.0-34.0); Mean Corpuscular HGB Conc 33.4 g/dL (31.5-36.5); Mean Corpuscular Volume 95 fL (80-100); Mean Platelet Volume 10.4 fL (9.1-12.4); NEUTROPHILS PERCENT AUTO 39 % (41-73); Platelet Count 201 K/mm3 (150-400); RDW Coefficient Variation 13.3 % (11.7-14.2); RDW Standard Deviation 47.6 fL (35.1-46.3); Red Blood Cell Count 4.43 M/mm3 (3.80-5.20); White Blood Cell Count 4.59 K/mm3 (4.00-11.30)
[2021-12-10 05:20] LABS: Bun/Creatinine Ratio 11.3 (12.0-20.0); Calcium, Blood 9.1 mg/dL (8.5-10.1); Creatinine, Blood 1.06 mg/dL (0.40-1.00); Potassium, Blood 3.3 mmol/L (3.5-5.5); Thyroid Stimulating Hormone 1.75 uIU/mL (0.360-4.800)
--- NOTE | 2021-12-10 05:27 | NUR ---
SHIFT SUMMARY NO ACUTE CHANGES OVERNIGHT. PT DENIES PAIN OVERNIGHT. IV ABX ADMINISTERED. ANTICIPATING FOR POSSIBLE SURGERY TODAY. NPO AFTER MIDNIGHT. PT ON CPAP AT NIGHT, GOT UNCOMFORTABLE IN THE MIDDLE OF THE NIGHT, REQUEST TO USE NASAL CANULA. PT ON 2L NC, SATS OVER 90%. AMBULATES INDEPENDENTLY IN BSC. VOIDING. DENIES BM TONIGHT. PASSING FLATUS. CALL LIGHT WITHIN REACH. WILL PROVIDE REPORT TO ONCOMING NURSE.
[2021-12-10 11:49] LABS: Influenza A, PCR NEGATIVE (NEGATIVE); Influenza B, PCR NEGATIVE (NEGATIVE); Resp Syncytial Virus, PCR NEGATIVE (NEGATIVE); SARS-Cov-2 (COVID-19) PCR, MMC NEGATIVE (NEGATIVE)
--- NOTE | 2021-12-10 12:36 | NUR ---
C/O PAIN AT IV SITE DURING K RIDER INFUSION, INFUSION STOPPED, DR. GAITAN NOTIFIED, KCL WILL BE ORDERED PO POST OP PER DR. GAITAN.
--- NOTE | 2021-12-10 14:12 | NUR ---
PT IN SURGERY.
--- NOTE | 2021-12-10 14:45 | NUR ---
12/10/21 1445 Irma Dawson ANTIBIOTIC ZOSYN 3.375 STARTED AT 1143
--- NOTE | 2021-12-10 18:44 | NUR ---
SUMMARY POST OP: ARRIVED FROM PACU VIA [facility], AWAKE, A&OX4, DAUGHTER AT BEDSIDE, DENIES ANY NEED FOR PAIN MEDS AT THIS TIME, DENIES ANY NAUSEA, 6 LAP INCSIONS ON ABD W/ WOUND GLUE, C/D/I, LUNGS CLEAR, HR IRREG, HYPOACTIVE BT'S X4, ABD SOFT, VSS, REPORT TO NOC RN.
--- NOTE | 2021-12-11 06:43 | NUR ---
POD 1 S/P LAP GUANAKITO. PT VSS T/O NIGHT. INCISIONS CDI. PT NORTH CL PO, DENIED N/V, REP NOT PASSING FLATUS YET. PT REP LESS PAINFUL THIS AM, MEDICATED W/TYLENOL PER PT REQ. PT VOIDING URINE W/O DIFFICULTY. PT UP OOB W/SBA, NORTH WELL.
[2021-12-11 08:11] LABS: BASOPHILS ABSOLUTE AUTO 0.01 K/mm3 (0.00-0.23); BASOPHILS PERCENT AUTO 0 % (0-2); EOSINOPHILS PERCENT AUTO 0 % (0-6); Hematocrit 44.4 % (33.0-51.0); IMMATURE GRAN ABSOLUTE AUTO 0.01 K/mm3 (0.00-0.10); IMMATURE GRAN PERCENT AUTO 0 % (0-1); LYMPHOCYTES ABSOLUTE AUTO 0.94 K/mm3 (0.84-5.20); LYMPHOCYTES PERCENT AUTO 15 % (21-46); MONOCYTES ABSOLUTE AUTO 0.32 K/mm3 (0.16-1.47); MONOCYTES PERCENT AUTO 5 % (4-13); Mean Corpuscular HGB 30.9 pg (26.0-34.0); Mean Corpuscular HGB Conc 31.5 g/dL (31.5-36.5); Mean Corpuscular Volume 98 fL (80-100); NEUTROPHILS ABSOLUTE AUTO 4.92 K/mm3 (1.96-9.15); NEUTROPHILS PERCENT AUTO 79 % (41-73); Platelet Count 202 K/mm3 (150-400); RDW Coefficient Variation 13.2 % (11.7-14.2); RDW Standard Deviation 47.6 fL (35.1-46.3); Red Blood Cell Count 4.53 M/mm3 (3.80-5.20)
[2021-12-11 08:35] LABS: Albumin, Blood 3.1 g/dL (3.4-5.0); Albumin/Globulin Ratio 0.8 (0.8-1.8); Bilirubin, Total 1.1 mg/dL (0.1-1.0); Bun/Creatinine Ratio 16.1 (12.0-20.0); Calcium, Blood 8.9 mg/dL (8.5-10.1); Creatinine, Blood 0.93 mg/dL (0.40-1.00); Globulin, Blood 3.7 g/dL (2.2-4.0); Potassium, Blood 4.4 mmol/L (3.5-5.5); Total Protein, Blood 6.8 g/dL (6.4-8.2)
--- NOTE | 2021-12-11 16:59 | NUR ---
SHIFT SUMMARY POD 1 LAP GUANAKITO, X6 LAP SITES TO ABDOMEN APPEAR WNL. PATIENT REPORTS MILD ABDOMINAL PAIN W/ MOVEMENT, OTHERWISE TOLERABLE. MEDICATED PER EMAR PRN. SBA TO BSC & CHAIR PRN. TOLERATING CLEAR LIQUID DIET WELL, PLAN TO ADVANCE TO REGULAR THIS EVENING PER DR MENDOZA ORDERS. PATIENT DENIES N/V. EATING, DRINKING, & VOIDING WELL. CONTINUING IV ABX PER EMAR. CALLS APPROPRIATELY, WILL REPORT TO ONCOMING RN.
--- NOTE | 2021-12-12 06:45 | NUR ---
POD 2 S/P LAP GUANAKITO +OMAR. PT VSS T/O NIGHT. INCISIONS CDI. PAIN MGD W/NORCO W/REP RELIEF. PT NORTH REG PO, DENIED N/V, REP NO FLATUS YET. PT VOIDING URINE W/O DIFFICULTY, ASSIST ED UP TO BSC. AMBULATION ENC
[2021-12-12] MEDS ORDERED: HYDR1TAB94 PO (11:51)
--- NOTE | 2021-12-12 13:05 | NUR ---
DISCHARGE PATIENT TRANSPORTED VIA WHEELCHAIR TO PRIVATE VEHICLE. DISCHARGE INSTRUCTIONS EXPLAINED TO PATIENT AND DAUGHTER. BOTH STATED UNDERSTANDING. PACKET SENT WITH PATIENT. BELONGINGS SENT WITH PATIENT. IV REMOVED WITHOUT DIFFICULTY. MEDICATIONS FAXED TO PREFERRED PHARMACY. HARD SCRIPT GIVEN TO PATIENT. FOLLOW UP APPOINTMENT WITH DR. JOHNSON MADE FOR 12/21 AT 2:45PM. PATIENT AWARE.
== END 2021-12-12 13:00 | disposition home or self-care (01) | DRG 418 ==
LOC: ER 10:43 → SURS 14:19
PROVIDERS: Nurse Practitioner Acute Care; Physician Assistant; Student in an Organized Health Care Education/Training Program; Surgery; ADMIT Student in an Organized Health Care Education/Training Program
PROC: 5A09357 Assistance with Respiratory Ventilation, Less than 24 Consecutive Hours, Continuous Positive Airway Pressure (ICD-10-PCS; 2021-12-09)
PROC: 0DN94ZZ Release Duodenum, Percutaneous Endoscopic Approach (ICD-10-PCS; 2021-12-09)
PROC: BF121ZZ Fluoroscopy of Gallbladder using Low Osmolar Contrast (ICD-10-PCS; 2021-12-10)
PROC: 0FT44ZZ Resection of Gallbladder, Percutaneous Endoscopic Approach (ICD-10-PCS; principal; 2021-12-10 12:00)
PROC: 0DNU4ZZ Release Omentum, Percutaneous Endoscopic Approach (ICD-10-PCS; 2021-12-10 12:00)
DX: K80.12 Calculus of gallbladder with acute and chronic cholecystitis without obstruction (principal); I50.32 Chronic diastolic (congestive) heart failure; K82.1 Hydrops of gallbladder; I48.91 Unspecified atrial fibrillation; J44.9 Chronic obstructive pulmonary disease, unspecified; I11.0 Hypertensive heart disease with heart failure; E89.0 Postprocedural hypothyroidism; F10.90 Alcohol use, unspecified, uncomplicated; E78.00 Pure hypercholesterolemia, unspecified; E05.00 Thyrotoxicosis with diffuse goiter without thyrotoxic crisis or storm; G47.33 Obstructive sleep apnea (adult) (pediatric); E86.1 Hypovolemia; Z20.822 Contact with and (suspected) exposure to COVID-19; Z90.49 Acquired absence of other specified parts of digestive tract; Z79.01 Long term (current) use of anticoagulants; Z88.2 Allergy status to sulfonamides; Z88.8 Allergy status to other drugs, medicaments and biological substances; Z79.899 Other long term (current) drug therapy; Z79.52 Long term (current) use of systemic steroids; Z79.811 Long term (current) use of aromatase inhibitors; Z98.890 Other specified postprocedural states; Z90.5 Acquired absence of kidney
CPT/HCPCS: 0241U; 36415; 71045; 74177; 74300; 76705; 80048; 80053; 83690; 84443; 85025; 85027; 87070; 87205; 88304; 93005; 93010; 94640; 94660; 94664; 94762; 96365-59; 99285-25; A9270; C1729; J1100; J1170; J1940; J2370; J2405; J2543; J2704; J2795; J3010; J3480; J7050; Q9967

== ENCOUNTER 2022-08-01 20:38 | Inpatient (IN) | payer MEDICARE, OTHER ==
[~2022-08-01] VITALS: Ht 170.2 cm; Wt 104.4 kg
[~2022-08-01 20:38] MED LIST changes: -LISI20 PO; +Prinivil10 MG PO
[2022-08-01 21:06] LABS: BASOPHILS ABSOLUTE AUTO 0.04 K/mm3 (0.00-0.23); BASOPHILS PERCENT AUTO 1 % (0-2); EOSINOPHILS ABSOLUTE AUTO 0.12 K/mm3 (0.00-0.68); EOSINOPHILS PERCENT AUTO 2 % (0-6); Hematocrit 27.4 % (33.0-51.0); Hemoglobin 7.6 g/dL (11.5-16.0); IMMATURE GRAN ABSOLUTE AUTO 0.01 K/mm3 (0.00-0.10); IMMATURE GRAN PERCENT AUTO 0 % (0-1); LYMPHOCYTES ABSOLUTE AUTO 2.04 K/mm3 (0.84-5.20); LYMPHOCYTES PERCENT AUTO 39 % (21-46); MONOCYTES ABSOLUTE AUTO 0.65 K/mm3 (0.16-1.47); MONOCYTES PERCENT AUTO 13 % (4-13); Mean Corpuscular HGB 21.8 pg (26.0-34.0); Mean Corpuscular HGB Conc 27.7 g/dL (31.5-36.5); Mean Corpuscular Volume 79 fL (80-100); Mean Platelet Volume 9.3 fL (9.1-12.4); NEUTROPHILS ABSOLUTE AUTO 2.33 K/mm3 (1.96-9.15); NEUTROPHILS PERCENT AUTO 45 % (41-73); Platelet Count 284 K/mm3 (150-400); RDW Coefficient Variation 16.8 % (11.7-14.2); RDW Standard Deviation 47.6 fL (35.1-46.3); Red Blood Cell Count 3.48 M/mm3 (3.80-5.20); White Blood Cell Count 5.19 K/mm3 (4.00-11.30)
[2022-08-01 21:29] LABS: Albumin, Blood 3.4 g/dL (3.4-5.0); Albumin/Globulin Ratio 0.9 (0.8-1.8); Bilirubin, Total 0.5 mg/dL (0.1-1.0); Bun/Creatinine Ratio 17.6 (12.0-20.0); Calcium, Blood 9.3 mg/dL (8.5-10.1); Creatinine, Blood 0.96 mg/dL (0.40-1.00); Globulin, Blood 3.7 g/dL (2.2-4.0); Potassium, Blood 4.2 mmol/L (3.5-5.5); Total Protein, Blood 7.1 g/dL (6.4-8.2)
[2022-08-02] MEDS ORDERED: PANTOPRAZOLE SO40 M2 PO (00:40)
[2022-08-02] MEDS ORDERED: POTA10T PO ×2 (01:02→01:06)
[2022-08-02] MEDS ORDERED: TRAM50 PO (01:07)
[2022-08-02] MEDS ORDERED: FURO20 PO (01:07)
[2022-08-02 01:15] VITALS: BP 176/83
--- NOTE | 2022-08-02 01:40 | NUR ---
ARRIVAL PT ARRIVED TO FLOOR, NEW ADMIT FROM ER. ARRIVED IN NO DISTRESS, A/O X4. C/O INCREASED SOB WITH AMBULATION X3-4 DAYS. VSS, HTN NOTED. PT REMAINS ASYMPTOMATIC. PT MAINTAINING SATS ON RA. ORDERS PUT IN PER PROTOCOL FOR CPAP. PT SETTLED INTO BED, KAREEM LIGHT IN REACH. NO ACUTE CONCERNS AT THIS TIME
[2022-08-02 04:33] VITALS: BP 161/69
--- NOTE | 2022-08-02 05:49 | NUR ---
SHIFT SUMMARY VSS. PT SLEPT WELL T/O THE NIGHT. AMBULATED TO THE BSC TWICE, VOIDING W/O DIFFICULTY. TOLLERATING MINIMAL PO INTAKE W/O N/V. MEDICATED FOR PAIN WITH TYLENOL. NO ACUTE EVENTS NOTED T/O THE NIGHT. PLAN FOR PT TO HAVE IRON INFUSIONS AND LABS TRENDED. THE PATIENT IS CURRENTLY SLEEPING, IN NO DISTRESS, CALL LIGHT IN REACH
[2022-08-02 05:57] LABS: BASOPHILS ABSOLUTE AUTO 0.04 K/mm3 (0.00-0.23); BASOPHILS PERCENT AUTO 1 % (0-2); EOSINOPHILS ABSOLUTE AUTO 0.13 K/mm3 (0.00-0.68); EOSINOPHILS PERCENT AUTO 2 % (0-6); Hematocrit 25.7 % (33.0-51.0); Hemoglobin 7.1 g/dL (11.5-16.0); IMMATURE GRAN ABSOLUTE AUTO 0.01 K/mm3 (0.00-0.10); IMMATURE GRAN PERCENT AUTO 0 % (0-1); LYMPHOCYTES ABSOLUTE AUTO 2.63 K/mm3 (0.84-5.20); LYMPHOCYTES PERCENT AUTO 40 % (21-46); MONOCYTES ABSOLUTE AUTO 0.64 K/mm3 (0.16-1.47); MONOCYTES PERCENT AUTO 10 % (4-13); Mean Corpuscular HGB 21.8 pg (26.0-34.0); Mean Corpuscular HGB Conc 27.6 g/dL (31.5-36.5); Mean Corpuscular Volume 79 fL (80-100); Mean Platelet Volume 9.4 fL (9.1-12.4); NEUTROPHILS ABSOLUTE AUTO 3.18 K/mm3 (1.96-9.15); NEUTROPHILS PERCENT AUTO 48 % (41-73); Platelet Count 262 K/mm3 (150-400); RDW Coefficient Variation 16.8 % (11.7-14.2); RDW Standard Deviation 48.3 fL (35.1-46.3); Red Blood Cell Count 3.26 M/mm3 (3.80-5.20); White Blood Cell Count 6.63 K/mm3 (4.00-11.30)
[2022-08-02 06:26] LABS: Albumin, Blood 3.1 g/dL (3.4-5.0); Albumin/Globulin Ratio 0.9 (0.8-1.8); Bilirubin, Total 0.5 mg/dL (0.1-1.0); Bun/Creatinine Ratio 16.7 (12.0-20.0); Calcium, Blood 8.6 mg/dL (8.5-10.1); Creatinine, Blood 0.96 mg/dL (0.40-1.00); Globulin, Blood 3.4 g/dL (2.2-4.0); Total Protein, Blood 6.5 g/dL (6.4-8.2)
[2022-08-02 08:03] VITALS: BP 153/70
[2022-08-02 16:52] VITALS: BP 147/65
--- NOTE | 2022-08-02 17:04 | NUR ---
PT IOS A/OX3, PLEASANT AND COOPERATIVE. THE PT IS UP WITH ASSIST, HOWEVER GETS VERY SOB WITH ANY ACTIVITY. THE PT IS O2L/MIN O2 VIA NC SAT'S >92% AT REST. THE PT REPORTS OVERALL FEELING SOB AND TIRED. PT DENIED ANY PAIN. THE PTS DAUGHTER HAS BEEN AT THE BEDSIDE T/O THE DAY. CALL LIGHT IN REACH, WILL CONTINUE TO MONITOR AND ASSESS FOR CHANGES
[2022-08-02 20:27] VITALS: BP 128/68
[2022-08-03 05:35] VITALS: BP 138/61
[2022-08-03 05:56] LABS: Hemoglobin 6.9 g/dL (11.5-16.0); Mean Corpuscular HGB 21.6 pg (26.0-34.0); Mean Corpuscular HGB Conc 26.5 g/dL (31.5-36.5); Mean Corpuscular Volume 81 fL (80-100); Mean Platelet Volume 9.1 fL (9.1-12.4); NRBC ABSOLUTE 0.07 K/mm3 (0.00-0.02); Platelet Count 259 K/mm3 (150-400); RDW Coefficient Variation 16.7 % (11.7-14.2); RDW Standard Deviation 49.4 fL (35.1-46.3); RETICULOCYTE ABSOLUTE 0.0541 M/mm3 (0.0200-0.1100); RETICULOCYTE COUNT PERCENT 1.69 % (0.50-2.50); White Blood Cell Count 7.07 K/mm3 (4.00-11.30)
[2022-08-03 06:28] LABS: BASOPHILS ABSOLUTE MAN 0.07 K/mm3 (0.00-0.23); BASOPHILS PERCENT MAN 1 % (0-2); EOSINOPHILS PERCENT MAN 0 % (0-6); LYMPHOCYTES % ATYPICAL MANUAL 4 % (0-0); LYMPHOCYTES ABSOLUTE MAN 1.13 K/mm3 (0.84-5.20); LYMPHOCYTES PERCENT MAN 12 % (21-46); MONOCYTES ABSOLUTE MAN 0.35 K/mm3 (0.16-1.47); MONOCYTES PERCENT MAN 5 % (4-13); NEUTROPHILS ABSOLUTE MAN 5.51 K/mm3 (1.96-9.15); SEG NEUTROPHILS PERCENT MAN 78 % (41-73); TOTAL CELLS COUNTED 100
[2022-08-03 06:41] LABS: Albumin/Globulin Ratio 0.9 (0.8-1.8); Bilirubin, Total 0.4 mg/dL (0.1-1.0); Bun/Creatinine Ratio 14.1 (12.0-20.0); Calcium, Blood 8.8 mg/dL (8.5-10.1); Creatinine, Blood 0.85 mg/dL (0.40-1.00); Globulin, Blood 3.5 g/dL (2.2-4.0); Potassium, Blood 4.1 mmol/L (3.5-5.5); Total Protein, Blood 6.5 g/dL (6.4-8.2)
--- NOTE | 2022-08-03 07:43 | NUR ---
AUTOMATIC PINSETTER ADJUSTER SUMMARY Patient slept well all night. Still extremely SOB at rest, and more so when pivoted to the commode. Hgb 6.8 this morning. Night Hospitalist informed. A&OX4, pleasant and cooperative with care. OOB with one assist to chair or commode.
[2022-08-03 08:07] VITALS: BP 142/63
[2022-08-03 15:22] VITALS: BP 140/56
--- NOTE | 2022-08-03 16:38 | NUR ---
PT IS A/OX3, PLEASANT AND COOPERATIVE. THE PT IS UP WITH MINIMAL ASSIST TO THE BSC, THE PT REPORTS FEELING THAT SHE IS BREATHING A LITTLE EASIER TODAY. PT CONTINUES ON 2LmIN O2 VIA NC. THE PT IS LESS SOB WITH ACTIVITY COMPARED TO YESTERDAY. THE PT WAS MEDICATED FOR PAIN WITH TYLENOL EARLY THIS REQUESTED. PT WAS MEDICATED FOR NAUSEA JUST PRIOR TO HER IRON INFUSION REQUESTED. MULTIPLE FAMILY AT THE BEDSIDE T/O THE DAY, CALL LIGHT IN REACH WILL CONTINUE TO MONITOR AND ASSESS FOR CHANGES
[2022-08-03 20:03] VITALS: BP 151/58
[2022-08-04 02:25] VITALS: BP 121/49
[2022-08-04 05:42] LABS: Hematocrit 24.2 % (33.0-51.0); Hemoglobin 6.4 g/dL (11.5-16.0); Mean Corpuscular HGB 21.9 pg (26.0-34.0); Mean Corpuscular HGB Conc 26.4 g/dL (31.5-36.5); Mean Corpuscular Volume 83 fL (80-100); Mean Platelet Volume 9.2 fL (9.1-12.4); NRBC ABSOLUTE 0.28 K/mm3 (0.00-0.02); NRBC Auto 3.9 /100 WBC (0.0-0.2); Platelet Count 224 K/mm3 (150-400); RDW Coefficient Variation 16.9 % (11.7-14.2); RDW Standard Deviation 50.7 fL (35.1-46.3); Red Blood Cell Count 2.92 M/mm3 (3.80-5.20); White Blood Cell Count 7.14 K/mm3 (4.00-11.30)
--- NOTE | 2022-08-04 07:32 | NUR ---
WET INSPECTOR OPTICAL GLASS SUMMARY Patient had difficulty maintaining 02 Sats overnight. either with CPAP with 02 bleed in or high flow NC. flow was turned down at beginning of shift on both CPAP and NC to 4LPM, however as Alyse fell asleep, as in the night before, her 02 saturation dropped into the mid to low 80's and the 02 was turned up on the cannula as well as CPAP. By the end of the night, she was on 6 liters and finally getting restfull sleep. 02 sats came up and 02 was turned down to 5L once she was fully awake in the morning
[2022-08-04 07:50] VITALS: BP 141/50
[2022-08-04 15:16] VITALS: BP 139/61
--- NOTE | 2022-08-04 17:37 | NUR ---
PT QUITE PLEASANT TODAY. DID REQUEST TYLENOL ONCE TODAY. IS ATTEMPTING TO HAVE B/M THIS PHILIP. IS QUITE [place], BUT READS LIPS WELL AND HAS QUITE A SENSE OF HUMOR. O2 MAINTAINING WELL. H/H CONTINUES TO DROP FROM YEST TO THIS AM. NO OTHER NEW CONCERNS NOTED. SHE REITTERATED IS [place] WITNESS AND NOT BLOOD PRODUCTS. BED IN LOW POSITION, CALL LITE IN REACH, CALLS APPROP
[2022-08-04 19:58] VITALS: BP 150/80
[2022-08-05 04:11] VITALS: BP 129/56
[2022-08-05 05:40] LABS: BASOPHILS ABSOLUTE AUTO 0.05 K/mm3 (0.00-0.23); BASOPHILS PERCENT AUTO 1 % (0-2); EOSINOPHILS ABSOLUTE AUTO 0.06 K/mm3 (0.00-0.68); EOSINOPHILS PERCENT AUTO 1 % (0-6); Hematocrit 26.9 % (33.0-51.0); Hemoglobin 7.1 g/dL (11.5-16.0); IMMATURE GRAN ABSOLUTE AUTO 0.13 K/mm3 (0.00-0.10); IMMATURE GRAN PERCENT AUTO 2 % (0-1); LYMPHOCYTES ABSOLUTE AUTO 1.31 K/mm3 (0.84-5.20); LYMPHOCYTES PERCENT AUTO 18 % (21-46); MONOCYTES ABSOLUTE AUTO 1.07 K/mm3 (0.16-1.47); MONOCYTES PERCENT AUTO 15 % (4-13); Mean Corpuscular HGB 22.3 pg (26.0-34.0); Mean Corpuscular HGB Conc 26.4 g/dL (31.5-36.5); Mean Corpuscular Volume 84 fL (80-100); Mean Platelet Volume 9.4 fL (9.1-12.4); NEUTROPHILS ABSOLUTE AUTO 4.75 K/mm3 (1.96-9.15); NEUTROPHILS PERCENT AUTO 64 % (41-73); NRBC ABSOLUTE 0.65 K/mm3 (0.00-0.02); NRBC Auto 8.8 /100 WBC (0.0-0.2); Platelet Count 241 K/mm3 (150-400); RDW Standard Deviation 50.6 fL (35.1-46.3); Red Blood Cell Count 3.19 M/mm3 (3.80-5.20); White Blood Cell Count 7.37 K/mm3 (4.00-11.30)
[2022-08-05 06:05] LABS: Albumin, Blood 2.9 g/dL (3.4-5.0); Albumin/Globulin Ratio 0.9 (0.8-1.8); Bilirubin, Total 0.4 mg/dL (0.1-1.0); Bun/Creatinine Ratio 17.9 (12.0-20.0); Calcium, Blood 8.9 mg/dL (8.5-10.1); Creatinine, Blood 0.78 mg/dL (0.40-1.00); Globulin, Blood 3.4 g/dL (2.2-4.0); Total Protein, Blood 6.3 g/dL (6.4-8.2)
--- NOTE | 2022-08-05 07:27 | NUR ---
PT COMPLAINED OF MODERATE HEADACHE AROUND HS LAST NIGHT. THIS WAS RESOLVED WITH TYLENOL. CANELO SLEPT USING NASAL CANNULA AT 5 LITERS AND OPTED NOT TO USE THE CPAP. SHE HAD BEEN REGULARILY USING HER CPAP AT HOME, BUT IS NOW AWARE THAT AT NIGHT SHE SLEEPS WITH HER MOUTH WIDE OPEN AND WHEN WEARING CPAP, SHE DE SATS EASILY AND FREQUENTLY INTO THE LOW 80'S WITHOUT WAKING UP. RT WAS IN TO SEE HER AND FELT THAT THE NOSE PIECE MASK WAS NOT APPROPRIATE FOR HER. HGB THIS MORNING TRENDING UP AT 7.1
[2022-08-05 07:44] VITALS: BP 141/54
[2022-08-05 08:46] VITALS: BP 134/61
[2022-08-05 12:39] VITALS: BP 146/73
--- NOTE | 2022-08-05 13:55 | NUR ---
PT IRON TRANSFUSION COMPLETE. PT REPORTING PAIN IN BL SHOULDERS AND ACROSS BACK. TREATED PAIN PER EMAR. PT REPORTING NAUSEA WITH RETCHING. UNABLE TO EAT. TREATED PER EMAR. NOTED AUDIBLE WHEEZING 3 FEET FROM PT. CALLED PHARMACY TO DISCUSS SYMPTOMS. PHARMACY STATES PAIN IN JOINTS AND N/V CAN BE A SIDE EFFECT. DR. CARRASCO NOTIFIED. ORDER PLACE FOR RT TREATMENT. RT AT BEDSIDE NOW. PT REPORTING THAT "SHE JUST DOESN'T FEEL GOOD" PT IS PALE, ALERT AND ORIENTED X4. FAMILY AT BEDSIDE. UPDATED DAUGHTER PER TELEPHONE.
[2022-08-05 15:22] VITALS: BP 162/70
--- NOTE | 2022-08-05 16:29 | NUR ---
CHECKED IN ON PT. PT ALERT AND ORIENTED X3-4 HARD OF HEARING. FAMILY STILL AT PT BEDSIDE. PT LOOKS LIKE SEE HAS MORE COLOR IN HER FACE. SHE REPORTS SHOULDER PAIN HAS RESOLVED. 4L NC. WHEEZING HAS RESOLVED FOR THE TIME. ABLE TO AMBULATE TO THE BATHROOM WITH ONE PERSON ASSISTANCE. PT REPORTS BEING HUNGRY BUT NOT FELLING LIKE SHE WANTS TO EAT.
--- NOTE | 2022-08-05 18:08 | NUR ---
SHIFT SUMMARY PT IS ALERT AND ORIENTED X4. PT REPORTS FEELING SLIGHTLY BETTER THAN BEFORE. FAMILY AT BEDSIDE. NO QUESTIONS AT THIS TIME. 1-2 PERSON STANDBY ASSIST. 1 BM TODAY. HARD STOOL. WILL PASS ON TO NIGHT NURSE.
[2022-08-05 20:43] VITALS: BP 136/60
[2022-08-06 04:03] VITALS: BP 154/69
[2022-08-06 05:25] LABS: BASOPHILS ABSOLUTE AUTO 0.05 K/mm3 (0.00-0.23); BASOPHILS PERCENT AUTO 1 % (0-2); EOSINOPHILS ABSOLUTE AUTO 0.03 K/mm3 (0.00-0.68); EOSINOPHILS PERCENT AUTO 0 % (0-6); Hematocrit 28.3 % (33.0-51.0); Hemoglobin 7.5 g/dL (11.5-16.0); IMMATURE GRAN ABSOLUTE AUTO 0.11 K/mm3 (0.00-0.10); IMMATURE GRAN PERCENT AUTO 2 % (0-1); LYMPHOCYTES ABSOLUTE AUTO 1.21 K/mm3 (0.84-5.20); LYMPHOCYTES PERCENT AUTO 17 % (21-46); MONOCYTES ABSOLUTE AUTO 0.86 K/mm3 (0.16-1.47); MONOCYTES PERCENT AUTO 12 % (4-13); Mean Corpuscular HGB 22.5 pg (26.0-34.0); Mean Corpuscular HGB Conc 26.5 g/dL (31.5-36.5); Mean Corpuscular Volume 85 fL (80-100); Mean Platelet Volume 9.5 fL (9.1-12.4); NEUTROPHILS PERCENT AUTO 69 % (41-73); NRBC Auto 9.6 /100 WBC (0.0-0.2); Platelet Count 246 K/mm3 (150-400); RDW Coefficient Variation 18.9 % (11.7-14.2); RDW Standard Deviation 49.9 fL (35.1-46.3); Red Blood Cell Count 3.34 M/mm3 (3.80-5.20); White Blood Cell Count 7.26 K/mm3 (4.00-11.30)
[2022-08-06 05:46] LABS: Albumin, Blood 2.9 g/dL (3.4-5.0); Albumin/Globulin Ratio 0.9 (0.8-1.8); Bilirubin, Total 0.5 mg/dL (0.1-1.0); Bun/Creatinine Ratio 13.5 (12.0-20.0); Creatinine, Blood 0.67 mg/dL (0.40-1.00); Globulin, Blood 3.4 g/dL (2.2-4.0); Potassium, Blood 4.7 mmol/L (3.5-5.5); Total Protein, Blood 6.3 g/dL (6.4-8.2)
[2022-08-06 05:53] LABS: BASOPHILS PERCENT MAN 0 % (0-2); EOSINOPHILS ABSOLUTE MAN 0.07 K/mm3 (0.00-0.68); EOSINOPHILS PERCENT MAN 1 % (0-6); LYMPHOCYTES % ATYPICAL MANUAL 1 % (0-0); LYMPHOCYTES ABSOLUTE MAN 1.16 K/mm3 (0.84-5.20); LYMPHOCYTES PERCENT MAN 15 % (21-46); MONOCYTES ABSOLUTE MAN 0.43 K/mm3 (0.16-1.47); MONOCYTES PERCENT MAN 6 % (4-13); NEUTROPHILS ABSOLUTE MAN 5.59 K/mm3 (1.96-9.15); SEG NEUTROPHILS PERCENT MAN 77 % (41-73); TOTAL CELLS COUNTED 100
--- NOTE | 2022-08-06 07:32 | NUR ---
CANELO WAS A LITTLE MORE SUBDUED OVERNIGHT, SHE REMAINED ON 5L 02 ON CANNULA SHE AGAIN DESATTED ON HER CPAP. HGB HAS AGAIN IMPROVED AND IS UP TO 7.5. EMOTIONALLY THOUGH, SHE APPEARED MORE SAD AND DEPRESSED. AND LOOKS EVEN MORE PALE THAN SHE HAS THE LAST FEW DAYS
[2022-08-06 07:35] VITALS: BP 154/77
[2022-08-06 10:03] LABS: Stool Occult Blood Guaiac 1 Pos (Neg)
--- NOTE | 2022-08-06 14:53 | NUR ---
PATIENT'S DAUGHTER PATRICA AT BEDSIDE, ASKING ABOUT PLAN FOR HER MOM. PT HAVING PERSISTENT NAUSEA WITHOUT VOMITING, DOES NOT WANT TO EAT. FEELS VERY BAD, STATING "I DONT' THINK I'M GOING TO MAKE IT THIS TIME." THIS AUTHOR SPOKE TO DR. VILA BY PHONE, REQUESTING ADDITIONAL ANTIEMETIC AND ASKING ABOUT THE PLAN GOING FORWARD. DR. BRAGG STATED THAT PT WOULD LIKELY GO HOME TOMORROW. REMINDED PROVIDER THAT PT'S STOOL WAS POSITIVE FOR OCCULT BLOOD. THIS AUTHOR WAS NOT PRESENT IN ROOM WHEN PROVIDER ROUNDED THIS MORNING, BUT PROVIDER HAD CONVERSATION WITH PT AND HER SON. THIS AUTHOR TOLD DAUGHTER PATRICA (WHO IS ALSO PT'S PRIMARY CG) ABOUT PLAN FOR D/C, SHE BECAME QUITE UPSET, STATING THAT HER MOTHER WAS NOT GETTING PROPER CARE AND SHOULD NOT BE DISCHARGED UNTIL SHE'S BETTER. THIS AUTHOR LEFT MESSAGE FOR PATIENT ADVOCATE TO COME TO BEDSIDE. THIS AUTHOR SPOKE TO BOX BLANK MACHINE OPERATOR ALICE ABOUT OTHER OPTIONS FOR FAMILY. ALICE SPOKE TO PATRICA AT BEDSIDE. THEN, DR. VILA CALLED THIS AUTHOR AND ASKED TO SPEAK TO DAUGHTER ON THE PHONE. PATRICA SPOKE TO PROVIDER FOR SEVERAL MINUTES. PATIENT IS NOT FEELING WELL ENOUGH TO PARTICIPATE IN THERAPY AND ULTIMATELY, ACCORDING TO Tru SHEN PT, REFUSED. PATRICA ASKED FOR GI CONSULT, AWAITING ORDER FROM DR. BRAGG. PATRICA ALSO HAD QUESTIONS ABOUT HOSPICE FOR HER MOM, WHICH WALDO WAS ABLE TO ANSWER. WILL CONTINUE TO MONITOR.
[2022-08-06 15:17] VITALS: BP 150/78
--- NOTE | 2022-08-06 19:25 | NUR ---
SHIFT SUMMARY: COMPAZINE IS RELIEVING NAUSEA BETTER THAN ZOFRAN, WAS ABLE TO EAT SOUP FOR DINNER AND KEEP IT DOWN. O2 @ 5 L/MIN THIS MORNING, TITRATED DOWN TO 3 L/MIN THIS AFTERNOON, THEN HAD TO INCREASE TO 4 L/MIN NC TONIGHT TO KEEP SATS AT 91%. BREATHING APPEARS LABORED, HAD RT TREATMENTS X 2 TODAY WITH LITTLE RELIEF. STOOL SPECIMEN RESULTED POSITIVE FOR OCCULT BLOOD, DR. VILA NOTIFIED BY PHONE. GETTING UP TO BSC WITH 1-2 PERSON ASSIST AND FWW. PATIENT ADVOCATE VISITED PT AND DAUGHTER. WILL HAVE GI CONSULT TOMORROW MORNING, CLEAR LIQ DIET FOR BREAKFAST.
[2022-08-06 19:54] VITALS: BP 146/68
[2022-08-07 02:39] VITALS: BP 159/80
--- NOTE | 2022-08-07 05:29 | NUR ---
SHIFT SUMMARY PT LAYING IN BED DURING BEDSIDE ROUNDS- PT ON 5L O2- 92% ON ELEVATOR BUILDER- PT TOOK SCHEDULED HS MEDS WITHOUT PROBLEMS, PT DENIES NAUSEA AT THIS TIME- PT SATS DECREASED TO 79% ON 5L WHILE FALLING ASLEEP- APPLIED CPAP WITH 7L OF OXYGEN- SATS =91-93%- INCREASED PT O2 UP 9L AND REPOSITIONED PT TO HELP MAINTAIN SATS AT 91-93% PT USED CALL LIGHT MULTIPLE TIMES TO USE BSC- PT BED LOW POSITION, PT CALLS APPROPRIATELY - CALL LIGHT WITHIN REACH
[2022-08-07 05:58] LABS: BASOPHILS ABSOLUTE AUTO 0.07 K/mm3 (0.00-0.23); BASOPHILS PERCENT AUTO 1 % (0-2); EOSINOPHILS ABSOLUTE AUTO 0.08 K/mm3 (0.00-0.68); EOSINOPHILS PERCENT AUTO 1 % (0-6); Hematocrit 30.6 % (33.0-51.0); Hemoglobin 8.2 g/dL (11.5-16.0); IMMATURE GRAN ABSOLUTE AUTO 0.15 K/mm3 (0.00-0.10); IMMATURE GRAN PERCENT AUTO 2 % (0-1); LYMPHOCYTES ABSOLUTE AUTO 1.82 K/mm3 (0.84-5.20); LYMPHOCYTES PERCENT AUTO 22 % (21-46); MONOCYTES ABSOLUTE AUTO 0.88 K/mm3 (0.16-1.47); MONOCYTES PERCENT AUTO 11 % (4-13); Mean Corpuscular HGB Conc 26.8 g/dL (31.5-36.5); Mean Corpuscular Volume 86 fL (80-100); Mean Platelet Volume 9.6 fL (9.1-12.4); NEUTROPHILS ABSOLUTE AUTO 5.37 K/mm3 (1.96-9.15); NEUTROPHILS PERCENT AUTO 64 % (41-73); NRBC Auto 17.9 /100 WBC (0.0-0.2); Platelet Count 265 K/mm3 (150-400); RDW Coefficient Variation 20.5 % (11.7-14.2); RDW Standard Deviation 50.4 fL (35.1-46.3); RETICULOCYTE ABSOLUTE 0.1906 M/mm3 (0.0200-0.1100); RETICULOCYTE COUNT PERCENT 5.34 % (0.50-2.50); Red Blood Cell Count 3.57 M/mm3 (3.80-5.20); White Blood Cell Count 8.37 K/mm3 (4.00-11.30)
[2022-08-07 06:01] LABS: Albumin/Globulin Ratio 0.9 (0.8-1.8); Bilirubin, Total 0.7 mg/dL (0.1-1.0); Bun/Creatinine Ratio 11.9 (12.0-20.0); Calcium, Blood 9.1 mg/dL (8.5-10.1); Creatinine, Blood 0.76 mg/dL (0.40-1.00); Globulin, Blood 3.5 g/dL (2.2-4.0); Magnesium, Blood 1.8 mg/dL (1.6-2.4); Percent Saturation 59.5 % (15.0-50.0); Phosphorus, Blood 2.2 mg/dL (2.5-4.9); Potassium, Blood 4.6 mmol/L (3.5-5.5); Total Protein, Blood 6.5 g/dL (6.4-8.2)
[2022-08-07 07:24] VITALS: BP 165/85
[2022-08-07 14:47] VITALS: BP 147/58
[2022-08-07] MEDS ORDERED: FOLBIC PO (16:30)
[2022-08-07] MEDS ORDERED: MIRALAX17 GM PO (16:31)
--- NOTE | 2022-08-07 18:01 | NUR ---
SHIFT SUMMARY: PT A/O X 3, 2 ASSIST TO BSC WITH GB AND WALKER, PLEASANT AND COOPERATIVE WITH CARE. PT RESTED IN BED MOST OF THE DAY. PT DID REPORT NAUSEA AND HEARTBURN THIS MORNING AND COMPAZINE AND MAALOX GIVEN AND EFFECTIVE. PLACED PURWICK SYSTEM IN PLACE PT REPORTED IT WAS TOO DIFFICULT TO GET OOB TO URINATE AT BSC. PT TO DISCHARGE TOMORROW ON HOSPICE. DAUGHTER IN WITH PT REPORTS SHE IS ACCEPTING OF THIS NEWS. PT TO DISCHARGE TOMORROW AT 0930, RIDE HAS ALREADY BEEN SET UP.
--- NOTE | 2022-08-07 19:19 | NUR ---
RESTING QUIETLY WITH HOB ELEVATED AND O2 PER NC. VISITOR AT BEDSIDE. CALL LIGHT IN REACH
[2022-08-07 19:49] VITALS: BP 148/68
[2022-08-08 04:17] VITALS: BP 169/70
--- NOTE | 2022-08-08 04:45 | NUR ---
SOCIAL MEDIA INTERN SUMMARY VSS. HAS BEEN RESTING QUIETLY THROUGHOUT SHIFT. AWAKENS TO STAFF INQUIRIES. A/O X 4. DENIED PAIN. DENIED LOSS OF FEELING. O2 PER NC THROUGH OUT SHIFT. SATS IN THE 90'S, WITH OCCASIONAL DROP TO 80'S, AT WHICH TIME SHE IS ENCOURAGED TO TAKE DEEP BREATHS. SCHEDULED TO BE DISCHARGED LATER TODAY ON HOSPICE. PUREWICK IN USE. CALL LIGHT IN REACH. WILL CONTINUE TO MONITOR.
[2022-08-08 07:58] VITALS: BP 137/89
--- NOTE | 2022-08-08 10:15 | NUR ---
0426 PATIENT DISCHARGED HOME WITH HOSPICE, TRANSPORTATION IN W/C, REPORTED TO [facility], DISCHARGE PAPERWORK WITH PATIENT FOR HER DAUGHTER, REVIEWED INSTRUCTIONS WITH PATIENT
== END 2022-08-08 09:39 | disposition hospice, home (50) | DRG 812 ==
LOC: ER 20:38 → MEDS 20:39 → ER 20:39 → MEDS 20:39 → ENPENDDIS 08-07 15:24 → MEDS 08-08 09:39
PROVIDERS: Emergency Medicine; Family Medicine; ADMIT Student in an Organized Health Care Education/Training Program
DX: D50.9 Iron deficiency anemia, unspecified (principal); I13.0 Hypertensive heart and chronic kidney disease with heart failure and stage 1 through stage 4 chronic kidney disease, or unspecified chronic kidney disease; J81.1 Chronic pulmonary edema; I50.32 Chronic diastolic (congestive) heart failure; I48.19 Other persistent atrial fibrillation; J44.9 Chronic obstructive pulmonary disease, unspecified; Z66 Do not resuscitate; E03.9 Hypothyroidism, unspecified; N18.9 Chronic kidney disease, unspecified; F10.90 Alcohol use, unspecified, uncomplicated; R09.02 Hypoxemia; I08.3 Combined rheumatic disorders of mitral, aortic and tricuspid valves; Z53.1 Procedure and treatment not carried out because of patient's decision for reasons of belief and group pressure; K31.A0 Gastric intestinal metaplasia, unspecified; K44.9 Diaphragmatic hernia without obstruction or gangrene; K57.30 Diverticulosis of large intestine without perforation or abscess without bleeding; K29.70 Gastritis, unspecified, without bleeding; E78.5 Hyperlipidemia, unspecified; K63.5 Polyp of colon; I27.20 Pulmonary hypertension, unspecified; Z90.5 Acquired absence of kidney; K59.00 Constipation, unspecified; Z99.81 Dependence on supplemental oxygen; Z88.8 Allergy status to other drugs, medicaments and biological substances; Z79.890 Hormone replacement therapy; Z79.01 Long term (current) use of anticoagulants; Z88.2 Allergy status to sulfonamides; Z79.899 Other long term (current) drug therapy
CPT/HCPCS: 36415; 71045; 80053; 82272; 82668; 82728; 83540; 83550; 83615; 83735; 83880; 84100; 84443; 85007; 85025; 85027; 85045; 93005; 93010; 94640; 94660; 94664; 94762; 96365; 96375; 99285-25; A9270; C8929; C9113; G0378; J0780; J1750; J1756; J7050; Q5106; Q9957